=== PATIENT | female | born 1940 | race Caucasian/White ===

== ENCOUNTER 2017-10-02 19:11 | Inpatient (IN) | payer MEDICARE, MEDICAID ==
[2017-10-02] MEDS ORDERED: ACETAMINOPHEN 650 MG SUPP.RECT PR ONE ×2 (19:42→23:00)
[2017-10-02] MEDS ORDERED: NORMAL SALINE 500 ML IV PRN (19:47)
[2017-10-02] MEDS ORDERED: CEFEPIME 1 GM/D5W RTU 1 GM/50 ML RTUPB IV ONE (19:48)
--- NOTE | 2017-10-02 19:51 | ER Document Report ---
ED General - General Chief Complaint: Fever Stated Complaint: FEVER Time Seen by Provider: 10/02/17 19:33 Mode of Arrival: Medic Information source: Relative, [facility] Records Notes: This is a 77-year-old female who is a resident of [facility], history of CVA entheses right upper extremity contracture), diabetes, sepsis in the past, brought into the emergency room with fever and shaking chills. Patient is accompanied by her son who states that the at baseline, the patient is not ambulatory and that she has good days and bad days as far as mentation and conversation. TRAVEL OUTSIDE OF THE [place] IN LAST 30 DAYS: No - HPI Onset: Yesterday Onset/Duration: Gradual Quality of pain: No pain Severity: None Pain Level: Denies Associated symptoms: Fever, Shortness of breath. denies: Chest pain Exacerbated by: Denies Relieved by: Denies Similar symptoms previously: Yes Recently seen / treated by doctor: No - Related Data Allergies/Adverse Reactions: codeine [Codeine] Allergy (Verified 10/19/15 10:19) Iodinated Contrast- Oral and IV Dye [IV Dye, Iodine Containing] Allergy ( Verified 10/19/15 10:19) Past Medical History - General Information source: Relative, [facility] Records - Social History Smoking Status: Never Smoker Cigarette use (# per day): No Chew tobacco use (# tins/day): No Frequency of alcohol use: None Drug Abuse: None Lives with: [facility] Family History: Reviewed & Not Pertinent Patient has suicidal ideation: No Patient has homicidal ideation: No - Past Medical History Cardiac Medical History: Reports: Hx Hypercholesterolemia, Hx Hypertension Pulmonary Medical History: Denies: Hx Tuberculosis Neurological Medical History: Reports: Hx Cerebrovascular Accident Endocrine Medical History: Reports: Hx Diabetes Mellitus Type 1, Hx Diabetes Mellitus Type 2 Psychiatric Medical History: Denies: Hx Depression Past Surgical History: Reports: Hx Hysterectomy, Hx Tonsillectomy. Denies: Hx Pacemaker - Immunizations Hx Diphtheria, Pertussis, Tetanus Vaccination: - unk Review of Systems - Review of Systems Constitutional: Chills, Fever EENT: No symptoms reported Cardiovascular: No symptoms reported Respiratory: See HPI Gastrointestinal: No symptoms reported Genitourinary: No symptoms reported Female Genitourinary: No symptoms reported Musculoskeletal: No symptoms reported Skin: No symptoms reported Hematologic/Lymphatic: No symptoms reported Neurological/Psychological: No symptoms reported Physical Exam - Vital signs Vitals: Temp Pulse BP Pulse Ox 99.3 F 80 106/61 82 L 10/02/17 19:35 10/02/17 19:35 10/02/17 19:35 10/02/17 19:35 Notes: Physical exam: GENERAL: 77-year-old female, lying in stretcher, eyes open, alert does answer questions with yes or no. Temperature is 102.9 rectally HEAD: Atraumatic, normocephalic. EYES: Pupils equal round and reactive to light, extraocular movements intact, sclera anicteric, conjunctiva are normal. ENT: TMs normal, nares patent, oropharynx clear without exudates. Dry mucous membranes. NECK: Normal range of motion, supple without obvious mass or JVD. LUNGS: Breath sounds clear to auscultation bilaterally and equal. No wheezes rales or rhonchi. HEART: Regular rate and rhythm without murmurs, rubs or gallops. ABDOMEN: Soft, normoactive bowel sounds. No tenderness to palpation. No guarding, no rebound. No masses appreciated. EXTREMITIES: Normal range of motion, no pitting or edema. No clubbing or cyanosis. NEUROLOGICAL: Cranial nerves II through XII grossly intact. Normal speech, moving all extremities: Right upper extremity contracture. PSYCH: Normal mood, normal affect. SKIN: Warm, Dry, normal turgor, no rashes or lesions noted. Course - Vital Signs Vital signs: Temp Pulse Resp BP Pulse Ox 97.6 F 130 H 24 H 117/42 L 100 10/03/17 00:51 10/03/17 02:56 10/03/17 00:51 10/02/17 20:02 10/03/17 02:57 - Laboratory Result Diagrams: 10/02/17 20:00 10/02/17 20:00 Laboratory results interpreted by me: 10/02/17 10/02/17 20:00 20:00 WBC 16.0 H RBC 3.21 L Hgb 9.4 L Hct 28.4 L Seg Neutrophils % 82.9 H Lymphocytes % 5.3 L Absolute Neutrophils 13.2 H Absolute Monocytes 1.7 H Sodium 133.0 L Potassium 5.3 H Chloride 97 L BUN 63 H Creatinine 3.32 H Est GFR ( Amer) 16 L Est GFR (Non-Af Amer) 13 L Glucose 353 H Direct Bilirubin 0.6 H AST 47 H - Diagnostic Test Radiology reviewed: Image reviewed, Reports reviewed - And atelectasis Critical Care Note - Critical Care Note Total time excluding time spent on procedures (mins): 60 Discharge - Discharge Clinical Impression: sepsis, pneumonia Condition: Serious Disposition: ADMITTED INPATIENT Admitting Provider: Hospitalist Baltazar ye Unit Admitted: [facility]
[2017-10-02 20:25] LABS: ABSOLUTE BASOPHILS # (AUTO) 0.1 10^3/uL (0.0-0.2); ABSOLUTE LYMPHOCYTES (AUTO) 0.8 10^3/uL (0.5-4.7); ABSOLUTE MONOCYTES (AUTO) 1.7 10^3/uL (0.1-1.4); ABSOLUTE NEUT (AUTO) 13.2 10^3/uL (1.7-8.2); BASOPHILS % (AUTO) 0.8 % (0-2); EOSINOPHILS % (AUTO) 0.3 % (0-6); HEMATOCRIT 28.4 % (36.0-47.0); HEMOGLOBIN 9.4 g/dL (12.0-15.5); HGB HCT DIFFERENCE -0.2; LYMPHOCYTES % (AUTO) 5.3 % (13-45); MEAN CORPUSCULAR HEMOGLOBIN 29.2 pg (27.0-33.4); MEAN CORPUSCULAR VOLUME 88 fl (80-97); MONOCYTES % (AUTO) 10.7 % (3-13); RED BLOOD COUNT 3.21 10^6/uL (3.72-5.28); RED CELL DISTRIBUTION WIDTH 13.5 % (11.5-14.0); SEGMENTED NEUTROPHILS % (AUTO) 82.9 % (42-78)
[2017-10-02 20:40] LABS: ALANINE AMINOTRANSFERASE 46 U/L (9-52); ALBUMIN 3.5 g/dL (3.5-5.0); ALKALINE PHOSPHATASE 111 U/L (38-126); ANION GAP 12 (5-19); ASPARTATE AMINO TRANSFERASE 47 U/L (14-36); BILIRUBIN,DIRECT 0.6 mg/dL (0.0-0.4); BILIRUBIN,TOTAL 0.9 mg/dL (0.2-1.3); BLOOD UREA NITROGEN 63 mg/dL (7-20); CALCIUM 8.7 mg/dL (8.4-10.2); CARBON DIOXIDE 24 mmol/L (22-30); CHLORIDE 97 mmol/L (98-107); CREATININE RESULT 3.32 mg/dL (0.52-1.25); GLUCOSE 353 mg/dL (75-110); POTASSIUM 5.3 mmol/L (3.6-5.0); TOTAL PROTEIN 6.9 g/dL (6.3-8.2)
--- NOTE | 2017-10-02 21:10 | RADIOLOGY REPORT (SQ) ---
EXAM DESCRIPTION: CHEST SINGLE VIEW COMPLETED DATE/TIME: 10/02/2017 8:53 pm REASON FOR STUDY: fever COMPARISON: 10/24/2015, 10/23/2015, 10/18/2015, 09/27/2015 EXAM PARAMETERS: NUMBER OF VIEWS: One view. TECHNIQUE: Single frontal radiographic view of the chest acquired. RADIATION DOSE: NA LIMITATIONS: None. FINDINGS: LUNGS AND PLEURA: Minimal bandlike atelectasis along the right minor fissure. No fluffy alveolar consolidation worrisome for edema or pneumonia. No pleural effusion. No pneumothorax. MEDIASTINUM AND HILAR STRUCTURES: No masses. Contour normal. HEART AND VASCULAR STRUCTURES: Mild cardiomegaly BONES: No acute findings. HARDWARE: None in the chest. OTHER: No other significant finding. IMPRESSION: Minimal bandlike atelectasis along the right minor fissure TECHNICAL DOCUMENTATION: JOB ID: [id number]- All Rights Reserved
[2017-10-02] MEDS ORDERED: VANCOMYCIN HCL INJ 1000 MG VIAL IV ONE (21:26)
[2017-10-02] MEDS ORDERED: LEVALBUTEROL HCL NEB 1.25 MG/3 ML AMPUL NEB PRN (22:09)
[2017-10-02] MEDS ORDERED: NORMAL SALINE 1000 ML 1,000 ML IV ONE (22:14)
[2017-10-03] MEDS ORDERED: INFLUENZA ADLT QUAD (36MOS+) 2017-18 VAC 0.5 ML SYR IM PRN (01:25)
[2017-10-03] MEDS ORDERED: METOPROLOL TARTRATE PF/INJ 5 MG/5 ML SDV IV ONE ×3 (01:56→02:43)
[2017-10-03] MEDS: IPRATROPIUM/ALBUTEROL 0.5-2.5 MG/3 ML AMPUL NEB SCH ×2 (02:19→08:43)
[2017-10-03] MEDS ORDERED: ONDANSETRON HCL INJ/PF 4 MG/2 ML SDV ONE (02:37)
[2017-10-03] MEDS ORDERED: LORAZEPAM INJ 2 MG/1 ML VIAL ONE (02:41)
[2017-10-03] MEDS ORDERED: LORAZEPAM INJ 2 MG/1 ML VIAL IV ONE (02:43)
[2017-10-03] MEDS ORDERED: NORMAL SALINE 1000 ML 1,000 ML IV ONE (02:43)
[2017-10-03] MEDS ORDERED: HALOPERIDOL LACTATE INJ 5 MG/1 ML VIAL IV ONE (02:43)
[2017-10-03] MEDS ORDERED: ACETAMINOPHEN 325 MG TABLET PO ONE (02:44)
[2017-10-03] MEDS ORDERED: DILTIAZEM HCL INJ 25 MG/5 ML VIAL IV ONE (02:51)
[2017-10-03] MEDS ORDERED: DILTIAZEM HCL/D5W 125 MG/125 ML RTUINJ IV PRN (02:51)
[2017-10-03] MEDS ORDERED: DILTIAZEM HCL INJ 25 MG/5 ML VIAL ONE (02:52)
[2017-10-03] MEDS ORDERED: DILTIAZEM HCL/D5W 125 MG/125 ML RTUINJ IV ONE (02:54)
[2017-10-03] MEDS ORDERED: VANCOMYCIN HCL 0 MG in DEXTROSE 5%-WATER 250 ML IV NR (03:00)
[2017-10-03 03:20] LABS: CREATINE KINASE MB 0.33 ng/mL (<4.55)
[2017-10-03 03:26] LABS: TROPONIN I 0.07 ng/mL
[2017-10-03] MEDS ORDERED: CEFEPIME 2 GM/D5W RTU 2 GM/50 ML RTUPB IV ONE (05:27)
[2017-10-03 05:48] LABS: ABSOLUTE BASOPHILS # (AUTO) 0.1 10^3/uL (0.0-0.2); ABSOLUTE LYMPHOCYTES (AUTO) 0.8 10^3/uL (0.5-4.7); ABSOLUTE MONOCYTES (AUTO) 1.6 10^3/uL (0.1-1.4); ABSOLUTE NEUT (AUTO) 12.4 10^3/uL (1.7-8.2); BASOPHILS % (AUTO) 0.6 % (0-2); EOSINOPHILS % (AUTO) 0.2 % (0-6); HEMATOCRIT 25.8 % (36.0-47.0); HEMOGLOBIN 8.6 g/dL (12.0-15.5); LYMPHOCYTES % (AUTO) 5.1 % (13-45); MEAN CORPUSCULAR HEMOGLOBIN 28.9 pg (27.0-33.4); MEAN CORPUSCULAR HGB CONC 33.2 g/dL (32.0-36.0); MEAN CORPUSCULAR VOLUME 87 fl (80-97); MONOCYTES % (AUTO) 10.9 % (3-13); RED BLOOD COUNT 2.96 10^6/uL (3.72-5.28); RED CELL DISTRIBUTION WIDTH 13.5 % (11.5-14.0); SEGMENTED NEUTROPHILS % (AUTO) 83.2 % (42-78); WHITE BLOOD COUNT 14.9 10^3/uL (4.0-10.5)
[2017-10-03 05:56] LABS: ANION GAP 13 (5-19); BLOOD UREA NITROGEN 54 mg/dL (7-20); CALCIUM 8.3 mg/dL (8.4-10.2); CARBON DIOXIDE 20 mmol/L (22-30); CHLORIDE 102 mmol/L (98-107); CREATININE RESULT 2.99 mg/dL (0.52-1.25); GLUCOSE 273 mg/dL (75-110); POTASSIUM 5.4 mmol/L (3.6-5.0); SODIUM 135.3 mmol/L (137-145)
[2017-10-03] MEDS ORDERED: HEPARIN SOD (PORCINE) 5,000 UNIT/ML 1 ML SYRINGE SUBCUT SCH (06:00)
[2017-10-03] MEDS ORDERED: CEFEPIME 2 GM/D5W RTU 2 GM/50 ML RTUPB IV SCH ×2 (06:00→18:00)
--- NOTE | 2017-10-03 06:19 | PDOC H&P ---
History of Present Illness Admission Date/PCP: 10/02/17 21:50 [place] History of Present Illness: QUIN LEWIS is a 77 year old female with past medical history of diabetes mellitus, hypertension, CVA, chronic kidney disease, atrial fibrillation who presents to the emergency department with fever and chills. Patient is accompanied by her son who reports that patient has been ill since last Thursday. He reports several episodes of vomiting and that she has been less talkative than normal. He is unable really to give any other history. Patient is a long-time resident of the senior living. Past Medical History Cardiac Medical History: Reports: Atrial Fibrillation, Hyperlipidema, Hypertension Pulmonary Medical History: Denies: Tuberculosis Neurological Medical History: Reports: Ischemic CVA Endocrine Medical History: Reports: Diabetes Mellitus Type 2, Obesity Psychiatric Medical History: Denies: Depression Past Surgical History Past Surgical History: Reports: Hysterectomy, Orthopedic Surgery - Hip replacement, Tonsillectomy Denies: Pacemaker Social History Lives with: [facility] Smoking Status: Never Smoker Frequency of Alcohol Use: None Hx Recreational Drug Use: No Drugs: None Hx Prescription Drug Abuse: No - Advance Directive Resuscitation Status: Full Code Surrogate healthcare decision maker:: steven Ho Family History Family History: CAD Parental Family History Reviewed: Yes Children Family History Reviewed: Yes Sibling(s) Family History Reviewed.: Yes Medication/Allergy Home Medications: Enalapril Maleate [Vasotec 5 mg Tablet] 5 mg PO DAILY 05/01/12 Lovastatin [Mevacor] 10 mg PO QHS 05/01/12 Metoprolol Succinate [Toprol Xl 25 mg Tab.sr] 25 mg PO QPM 05/01/12 Lansoprazole [Prevacid 30 mg Odt Tablet] 30 mg PO Q6AM #0 tab. 10/02/15 Ondansetron [Zofran Odt 4 mg Tablet] 4 mg PO Q4HP PRN #0 tab.eliza 10/02/15 Polyethylene Glycol 3350 [Miralax Powder 17 gm/Packet] 17 gm PO QAM #0 powd.pack 10/02/15 Insulin Aspart [Novolog Flexpen] 0 unit SUBCUT .SLD SCALE PRN 10/19/15 Rivaroxaban [Xarelto 10 mg Tablet] 10 mg PO DAILY 10/19/15 Cefdinir [Omnicef 300 mg Capsule] 1 cap PO BID #10 capsule 10/23/15 Insulin Glargine,Hum.rec.anlog [Lantus Insulin 100 Unit/mL] 15 unit SUBCUT QHS insuln.pen 10/23/15 Tramadol HCl [Ultram 50 mg Tablet] 50 mg PO Q6HP PRN #30 tablet 10/23/15 Haloperidol [Haldol 2 mg Tablet] 2 mg PO QHS #30 tablet 10/25/15 Allergies/Adverse Reactions: codeine [Codeine] Allergy (Verified 10/19/15 10:19) Iodinated Contrast- Oral and IV Dye [IV Dye, Iodine Containing] Allergy ( Verified 10/19/15 10:19) Review of Systems ROS unobtainable: Due to mental status Physical Exam Vital Signs: Temp Pulse Resp BP Pulse Ox 97.6 F 130 H 24 H 115/67 100 10/03/17 00:51 10/03/17 02:56 10/03/17 00:51 10/03/17 03:14 10/03/17 04:00 Intake & Output 10/01/17 10/02/17 10/03/17 06:59 06:59 06:59 Weight 88.1 kg General appearance: PRESENT: mild distress, obese, well-developed, well- nourished Head exam: PRESENT: atraumatic, normocephalic Eye exam: PRESENT: conjunctiva pink, EOMI, PERRLA. ABSENT: scleral icterus Ear exam: PRESENT: normal external ear exam Mouth exam: PRESENT: dry mucosa, tongue midline Neck exam: PRESENT: lymphadenopathy, thyromegaly. ABSENT: JVD, tracheal deviation Respiratory exam: PRESENT: rhonchi - Right-sided, symmetrical, tachypnea, unlabored. ABSENT: accessory muscle use, rales, wheezes Cardiovascular exam: PRESENT: irregular rhythm, systolic murmur. ABSENT: diastolic murmur, gallop, rubs Pulses: PRESENT: normal dorsalis pedis pul Vascular exam: PRESENT: normal capillary refill GI/Abdominal exam: PRESENT: normal bowel sounds, soft. ABSENT: distended, firm , guarding, mass, Molina's sign, organolmegaly, rebound, rigid, tenderness Rectal exam: PRESENT: deferred Extremities exam: PRESENT: full ROM. ABSENT: calf tenderness, clubbing, pedal edema Neurological exam: PRESENT: alert, awake, oriented to person, motor sensory deficit - Right upper extremity weakness, chronic. ABSENT: CN II-XII grossly intact - Left-sided facial droop Psychiatric exam: PRESENT: anxious. ABSENT: homicidal ideation, suicidal ideation Skin exam: PRESENT: dry, intact, warm. ABSENT: cyanosis, rash Results Laboratory Results: 10/03/17 05:21 10/03/17 05:21 10/03/17 10/03/17 05:21 05:21 WBC 14.9 H RBC 2.96 L Hgb 8.6 L Hct 25.8 L MCV 87 MCH 28.9 MCHC 33.2 RDW 13.5 Plt Count 211 Seg Neutrophils % 83.2 H Lymphocytes % 5.1 L Monocytes % 10.9 Eosinophils % 0.2 Basophils % 0.6 Absolute Neutrophils 12.4 H Absolute Lymphocytes 0.8 Absolute Monocytes 1.6 H Absolute Eosinophils 0.0 Absolute Basophils 0.1 Sodium 135.3 L Potassium 5.4 H Chloride 102 Carbon Dioxide 20 L Anion Gap 13 BUN 54 H Creatinine 2.99 H Est GFR ( Amer) 18 L Est GFR (Non-Af Amer) 15 L Glucose 273 H Calcium 8.3 L 10/03/17 10/03/17 02:06 02:06 Creatine Kinase 52 CK-MB (CK-2) 0.33 Troponin I 0.070 Impressions: Chest X-Ray 10/02/17 19:47 IMPRESSION: Minimal bandlike atelectasis along the right minor fissure Status: Imported from PACS Assessment & Plan - Diagnosis (1) Acute renal failure Is this a current diagnosis for this admission?: Yes Plan: Likely secondary to sepsis and dehydration. Replete and recheck (2) Acute respiratory failure with hypoxemia Is this a current diagnosis for this admission?: Yes Plan: Oxygen as needed (3) Hyperkalemia Is this a current diagnosis for this admission?: Yes Plan: Likely secondary to intravascular volume depletion. And use of an PROMISE inhibitor at home. Hold PROMISE inhibitor and rehydrate patient recheck. (4) Atrial fibrillation with RVR Is this a current diagnosis for this admission?: Yes Plan: Give patient IV Lopressor and started on Cardizem. Patient is not on anticoagulation at her nursing facility. (5) Hyponatremia Is this a current diagnosis for this admission?: Yes Plan: Secondary to intravascular volume depletion. Replete and recheck (6) Anemia of chronic disease Is this a current diagnosis for this admission?: Yes (7) Chronic kidney disease, stage 3 Is this a current diagnosis for this admission?: Yes (8) Diabetes mellitus type II, controlled Qualifiers: Diabetes mellitus complication status: with kidney complications Diabetes mellitus complication detail: with chronic kidney disease Diabetes mellitus marine oil terminal superintendent insulin use: with marine oil terminal superintendent use Chronic kidney disease stage: stage 3 (moderate) Qualified Code(s): E11.22 - Type 2 diabetes mellitus with diabetic chronic kidney disease; N18.3 - Chronic kidney disease, stage 3 ( moderate); N18.3 - Chronic kidney disease, stage 3 (moderate); Z79.4 - halfway (current) use of insulin; Z79.4 - predatory animal exterminator (current) use of insulin; Z79.4 - halfway (current) use of insulin; Z79.4 - predatory animal exterminator (current) use of insulin Is this a current diagnosis for this admission?: Yes Plan: Place patient on sliding scale insulin and diabetic diet. Continue nightly Lantus (9) Hyperlipidemia Is this a current diagnosis for this admission?: Yes (10) Hypertension Is this a current diagnosis for this admission?: Yes Plan: Continue metoprolol (11) Metabolic encephalopathy Is this a current diagnosis for this admission?: Yes Plan: Haldol, patient does not respond well to benzodiazepines (12) DVT prophylaxis Is this a current diagnosis for this admission?: Yes Plan: Heparin and SCDs - Time Time Spent: 50 to 70 Minutes Medications reviewed and adjusted accordingly: Yes Anticipated discharge: SNF Within: Other - Upon improvement of symptomatology - Inpatient Certification Based on my medical assessment, after consideration of the patient's comorbidities, presenting symptoms, or acuity I expect that the services needed warrant INPATIENT care.: Yes I certify that my determination is in accordance with my understanding of Medicare's requirements for reasonable and necessary INPATIENT services [42 CFR 412.3e].: Yes Medical Necessity: Need For IV Fluids, Need For Continuous Telemetry Monitoring , Need for IV Antibiotics Post Hospital Care: D/C Armature Balancer Documentation
[2017-10-03] MEDS ORDERED: HALOPERIDOL LACTATE INJ 5 MG/1 ML VIAL ONE (06:43)
[2017-10-03] MEDS: ACETAMINOPHEN 325 MG TABLET PO PRN ×2 (06:51→18:06)
[2017-10-03] MEDS ORDERED: NORMAL SALINE 500 ML IV PRN (08:18)
[2017-10-03] MEDS ORDERED: LEVOFLOXACIN 500 MG/D5W RTU 500 MG/100 ML RTUPB IV SCH (10:00)
[2017-10-03 10:03] LABS: CREATINE KINASE MB < 0.22 ng/mL (<4.55)
[2017-10-03] MEDS ORDERED: METOPROLOL SUCCINATE 25 MG TAB.SR.24H PO ONE (10:15)
[2017-10-03] MEDS: FAMOTIDINE 20 MG TABLET PO SCH ×2 (10:43→22:23)
[2017-10-03] MEDS: GUAIFENESIN 600 MG TABLET.SA PO SCH ×2 (10:43→22:23)
[2017-10-03] MEDS ORDERED: OLANZAPINE INJ/PF 10 MG SDV IM ONE (12:30)
[2017-10-03] MEDS: NYSTATIN OINTMENT 15 GM TUBE TP SCH (13:00)
[2017-10-03 15:49] LABS: CREATINE KINASE MB 0.49 ng/mL (<4.55); TROPONIN I 0.06 ng/mL
[2017-10-03] MEDS ORDERED: METOPROLOL SUCCINATE 25 MG TAB.SR.24H PO SCH (18:00)
[2017-10-03] MEDS: CEFEPIME 2 GM/D5W RTU 2 GM/50 ML RTUPB IV SCH (18:01)
[2017-10-03] MEDS: METOPROLOL TARTRATE PF/INJ 5 MG/5 ML SDV IV PRN (20:22)
[2017-10-03] MEDS ORDERED: (PENDING PHARMACY ID) (Lovastatin [Mevacor] 10 MG) PO SCH (22:00)
[2017-10-03] MEDS: ATORVASTATIN CALCIUM 10 MG TABLET PO SCH (22:23)
[2017-10-03] MEDS: METOPROLOL SUCCINATE 25 MG TAB.SR.24H PO SCH (22:24)
[2017-10-03] MEDS: HALOPERIDOL 2 MG TABLET PO SCH (22:24)
[2017-10-03] MEDS: INSULIN GLARGINE,HUM.REC.ANLOG 300 UNIT/3 ML INSULN.PEN SUBCUT SCH (22:25)
[2017-10-03] MEDS: NORMAL SALINE 1000 ML 1,000 ML IV PRN (22:30)
--- NOTE | 2017-10-04 04:42 | PDOC PROGRESS REPORT ---
Subjective Progress Note for:: 10/03/17 Subjective:: Patient present with fever and leukocytosis. Patient now growing gram negative rods in urine, and blood. Patient on cefepime and vancomycin. Patient also in afib and now hypotensive on cardizem drip. Patient agitated and cannot get comfortable in the bed. This is her baseline per family at bedside. Reason For Visit: SEPSIS, PNEUMONIA Physical Exam Vital Signs: Temp Pulse Resp BP Pulse Ox 99.5 F 120 H 24 H 123/69 98 10/03/17 20:19 10/03/17 20:23 10/03/17 20:23 10/03/17 16:35 10/03/17 20:23 Intake & Output 10/02/17 10/03/17 10/04/17 06:59 06:59 06:59 Intake Total 515 200 Output Total 2300 Balance 515 -2100 Weight 89.6 kg General appearance: PRESENT: mild distress, obese Head exam: PRESENT: normocephalic Eye exam: PRESENT: EOMI. ABSENT: scleral icterus Ear exam: PRESENT: normal external ear exam Mouth exam: PRESENT: moist Neck exam: ABSENT: carotid bruit, JVD, lymphadenopathy, thyromegaly Respiratory exam: PRESENT: clear to auscultation sarah. ABSENT: rales, rhonchi, wheezes Cardiovascular exam: PRESENT: irregular rhythm. ABSENT: diastolic murmur, rubs , systolic murmur GI/Abdominal exam: PRESENT: normal bowel sounds, soft. ABSENT: distended, guarding, mass, organolmegaly, rebound, tenderness Rectal exam: PRESENT: deferred Gentrourinary exam: PRESENT: indwelling catheter Extremities exam: ABSENT: calf tenderness, clubbing, pedal edema Neurological exam: PRESENT: alert, altered, awake, oriented to person, CN II- XII grossly intact, other - right side weakness. ABSENT: motor sensory deficit Psychiatric exam: PRESENT: appropriate affect, normal mood. ABSENT: homicidal ideation, suicidal ideation Skin exam: PRESENT: dry, intact, warm, other - rash under her abdominal skin fold.. ABSENT: cyanosis, rash Results Laboratory Results: 10/03/17 05:21 10/03/17 05:21 10/03/17 10/03/17 05:21 05:21 WBC 14.9 H RBC 2.96 L Hgb 8.6 L Hct 25.8 L MCV 87 MCH 28.9 MCHC 33.2 RDW 13.5 Plt Count 211 Seg Neutrophils % 83.2 H Lymphocytes % 5.1 L Monocytes % 10.9 Eosinophils % 0.2 Basophils % 0.6 Absolute Neutrophils 12.4 H Absolute Lymphocytes 0.8 Absolute Monocytes 1.6 H Absolute Eosinophils 0.0 Absolute Basophils 0.1 Sodium 135.3 L Potassium 5.4 H Chloride 102 Carbon Dioxide 20 L Anion Gap 13 BUN 54 H Creatinine 2.99 H Est GFR ( Amer) 18 L Est GFR (Non-Af Amer) 15 L Glucose 273 H Calcium 8.3 L 10/03/17 10/03/17 10/03/17 02:06 02:06 08:30 Creatine Kinase 52 45 CK-MB (CK-2) 0.33 Troponin I 0.070 10/03/17 10/03/17 10/03/17 08:30 15:03 15:03 Creatine Kinase 56 CK-MB (CK-2) < 0.22 0.49 Troponin I 0.070 0.060 Impressions: Chest X-Ray 10/02/17 19:47 IMPRESSION: Minimal bandlike atelectasis along the right minor fissure Assessment & Plan - Diagnosis (1) Bacteremia Is this a current diagnosis for this admission?: Yes Plan: GNR bacteremia. Source most likely the urine. Patient on cefepime. Will discontinue vancomycin. Will continue to follow cultures for identification and susceptibilities. Repeat cultures ordered for the am. (2) Atrial fibrillation with RVR Is this a current diagnosis for this admission?: Yes Plan: Most likely due to underlying infection. Patient hypotensive on cardizem gtt. Will discontinue cardizem gtt. Will bolus patient and start toprolol 25mg bid along with PRN metoprolol IV push PRN for HR>115. Patient on xarelto for anticoagulation. This should resolve once infection is treated. (3) Acute renal failure Qualifiers: Acute renal failure type: unspecified Qualified Code(s): N17.9 - Acute kidney failure, unspecified Is this a current diagnosis for this admission?: Yes Plan: Acute on chronic renal failure 3-4. Most likely due to sepsis and intravascular depletion. Improving with IV fluids. Will continue to monitor. (4) Diabetes mellitus type II, controlled Qualifiers: Diabetes mellitus complication status: with kidney complications Diabetes mellitus complication detail: with chronic kidney disease Diabetes mellitus rat exterminator insulin use: with retirement use Chronic kidney disease stage: stage 3 (moderate) Qualified Code(s): E11.22 - Type 2 diabetes mellitus with diabetic chronic kidney disease; N18.3 - Chronic kidney disease, stage 3 ( moderate); N18.3 - Chronic kidney disease, stage 3 (moderate); Z79.4 - superintendent terminal (current) use of insulin; Z79.4 - superintendent terminal (current) use of insulin; Z79.4 - skilled nursing (current) use of insulin; Z79.4 - superintendent terminal (current) use of insulin Is this a current diagnosis for this admission?: Yes Plan: Continue current insulin regimen. (5) Metabolic encephalopathy Is this a current diagnosis for this admission?: Yes (6) Sepsis Is this a current diagnosis for this admission?: Yes Plan: Most likely due to GNR uti with bacteremia. Continue cefepime until cultures finalized. (7) UTI (urinary tract infection) Qualifiers: Urinary tract infection type: site unspecified Hematuria presence: with hematuria Qualified Code(s): N39.0 - Urinary tract infection, site not specified Plan: GNR growing in urine culture and blood. Patient currently on cefepime. (8) Hyperkalemia Is this a current diagnosis for this admission?: Yes Plan: Due to acute on chronic renal failure. Monitor. Will give dose of kayexelate. (9) Hyponatremia Is this a current diagnosis for this admission?: Yes Plan: Due to intravascular depletion. Continue NS and monitor. Currently trending up. (10) Dementia Qualifiers: Dementia behavioral disturbance: with behavioral disturbance Is this a current diagnosis for this admission?: Yes Plan: Patient now with worsened mentation due to acute infection; however patient with prior CVA most likely has vascular dementia. Continue home medications and avoid the use of ativan. - Time Time Spent with patient: 15-24 minutes Anticipated discharge: SNF - Inpatient Certification Medical Necessity: Significant Comorbidiites Make Outpatient Treatment Too Risky , Need Close Monitoring Due to Risk of Patient Decompensation, Need for IV Antibiotics
[2017-10-04 07:09] LABS: ABSOLUTE BASOPHILS # (AUTO) 0.1 10^3/uL (0.0-0.2); ABSOLUTE EOSINOPHILS # (AUTO) 0.2 10^3/uL (0.0-0.6); ABSOLUTE LYMPHOCYTES (AUTO) 1.2 10^3/uL (0.5-4.7); ABSOLUTE NEUT (AUTO) 9.8 10^3/uL (1.7-8.2); RED BLOOD COUNT 2.72 10^6/uL (3.72-5.28); WHITE BLOOD COUNT 12.7 10^3/uL (4.0-10.5)
[2017-10-04 07:19] LABS: ABSOLUTE MONOCYTES (AUTO) 1.4 10^3/uL (0.1-1.4); BASOPHILS % (AUTO) 0.9 % (0-2); EOSINOPHILS % (AUTO) 1.4 % (0-6); HEMATOCRIT 23.7 % (36.0-47.0); HGB HCT DIFFERENCE 0.3; LYMPHOCYTES % (AUTO) 9.7 % (13-45); MEAN CORPUSCULAR HEMOGLOBIN 29.4 pg (27.0-33.4); MEAN CORPUSCULAR HGB CONC 33.8 g/dL (32.0-36.0); MEAN CORPUSCULAR VOLUME 87 fl (80-97); RED CELL DISTRIBUTION WIDTH 13.6 % (11.5-14.0)
[2017-10-04 07:20] LABS: ANION GAP 13 (5-19); BLOOD UREA NITROGEN 49 mg/dL (7-20); CARBON DIOXIDE 17 mmol/L (22-30); CHLORIDE 109 mmol/L (98-107); CREATININE RESULT 2.45 mg/dL (0.52-1.25); GLUCOSE 135 mg/dL (75-110); POTASSIUM 4.6 mmol/L (3.6-5.0); SODIUM 138.7 mmol/L (137-145)
[2017-10-04] MEDS ORDERED: VANCOMYCIN HCL 1,500 MG in DEXTROSE 5%-WATER 250 ML IV SCH (10:00)
[2017-10-04] MEDS: RIVAROXABAN 10 MG TABLET PO SCH (11:10)
[2017-10-04] MEDS: FAMOTIDINE 20 MG TABLET PO SCH ×2 (11:10→23:31)
[2017-10-04] MEDS: GUAIFENESIN 600 MG TABLET.SA PO SCH ×2 (11:10→23:49)
[2017-10-04] MEDS: METOPROLOL SUCCINATE 25 MG TAB.SR.24H PO SCH ×2 (11:10→23:29)
[2017-10-04] MEDS: NYSTATIN OINTMENT 15 GM TUBE TP SCH (13:12)
[2017-10-04] MEDS ORDERED: DEXTROSE 40% GEL 15 GM TUBE PO PRN ×2 (13:13)
[2017-10-04] MEDS ORDERED: GLUCAGON,HUMAN RECOMB 1 MG INJ IM PRN (13:13)
[2017-10-04] MEDS ORDERED: DEXTROSE 50%-WATER 25 GM/50 ML DISP.SYRIN IV PRN ×2 (13:13)
--- NOTE | 2017-10-04 13:17 | PDOC PROGRESS REPORT ---
Subjective Progress Note for:: 10/04/17 Subjective:: Pt states that she is sleepy. Pt states she feels a little better. Nursing states that they have had a hard time getting pt to take medications. Pt states that she does not normally sleep this much. Reason For Visit: SEPSIS, PNEUMONIA Physical Exam Vital Signs: Temp Pulse Resp BP Pulse Ox 98.6 F 116 H 18 119/47 L 100 10/04/17 12:10 10/04/17 08:00 10/04/17 12:10 10/04/17 11:01 10/04/17 11:01 Intake & Output 10/03/17 10/04/17 10/05/17 06:59 06:59 06:59 Intake Total 515 790 0 Output Total 2450 600 Balance 515 -1660 -600 Weight 89.6 kg 88.4 kg General appearance: PRESENT: no acute distress, well-developed, well-nourished, other - sleepy but will answer questions. Head exam: PRESENT: atraumatic, normocephalic Eye exam: PRESENT: conjunctiva pink, EOMI, PERRLA. ABSENT: scleral icterus Ear exam: PRESENT: normal external ear exam Mouth exam: PRESENT: moist, tongue midline Neck exam: ABSENT: carotid bruit, JVD, lymphadenopathy, thyromegaly Respiratory exam: PRESENT: clear to auscultation sarah. ABSENT: rales, rhonchi, wheezes Cardiovascular exam: PRESENT: irregular rhythm, +S1, +S2 Pulses: PRESENT: normal dorsalis pedis pul Vascular exam: PRESENT: normal capillary refill GI/Abdominal exam: PRESENT: normal bowel sounds, soft. ABSENT: distended, guarding, mass, organolmegaly, rebound, tenderness Rectal exam: PRESENT: deferred Extremities exam: PRESENT: full ROM. ABSENT: calf tenderness, clubbing, pedal edema Neurological exam: PRESENT: other - sleeping but will answer questions Psychiatric exam: PRESENT: flat affect. ABSENT: homicidal ideation, suicidal ideation Skin exam: PRESENT: dry, intact, warm. ABSENT: cyanosis, rash Results Laboratory Results: 10/04/17 05:30 10/04/17 05:30 10/04/17 10/04/17 05:30 05:30 WBC 12.7 H RBC 2.72 L Hgb 8.0 L Hct 23.7 L MCV 87 MCH 29.4 MCHC 33.8 RDW 13.6 Plt Count 206 Seg Neutrophils % 77.0 Lymphocytes % 9.7 L Monocytes % 11.0 Eosinophils % 1.4 Basophils % 0.9 Absolute Neutrophils 9.8 H Absolute Lymphocytes 1.2 Absolute Monocytes 1.4 Absolute Eosinophils 0.2 Absolute Basophils 0.1 Sodium 138.7 Potassium 4.6 Chloride 109 H Carbon Dioxide 17 L Anion Gap 13 BUN 49 H Creatinine 2.45 H Est GFR ( Amer) 23 L Est GFR (Non-Af Amer) 19 L Glucose 135 H Calcium 8.0 L 10/03/17 10/03/17 10/03/17 02:06 02:06 08:30 Creatine Kinase 52 45 CK-MB (CK-2) 0.33 Troponin I 0.070 10/03/17 10/03/17 10/03/17 08:30 15:03 15:03 Creatine Kinase 56 CK-MB (CK-2) < 0.22 0.49 Troponin I 0.070 0.060 Impressions: Chest X-Ray 10/02/17 19:47 IMPRESSION: Minimal bandlike atelectasis along the right minor fissure Assessment & Plan - Diagnosis (1) Sepsis Is this a current diagnosis for this admission?: Yes Plan: Secondary to Acute Cystitis: Will continue current antibiotic. (2) Acute cystitis Is this a current diagnosis for this admission?: Yes Plan: Will continue current antibiotic. (3) Bacteremia Is this a current diagnosis for this admission?: Yes Plan: Most likely secondary to bacteria translocating to blood stream: Will continue current antibiotic. (4) Hypertension Is this a current diagnosis for this admission?: Yes Plan: Will continue to monitor. (5) Atrial fibrillation with RVR Is this a current diagnosis for this admission?: Yes Plan: Will continue current PO medications. Rate better controlled. (6) Diabetes mellitus type II, controlled Qualifiers: Diabetes mellitus complication status: with kidney complications Diabetes mellitus complication detail: with chronic kidney disease Diabetes mellitus long term care social worker insulin use: with long term care social worker use Chronic kidney disease stage: stage 3 (moderate) Qualified Code(s): E11.22 - Type 2 diabetes mellitus with diabetic chronic kidney disease; N18.3 - Chronic kidney disease, stage 3 ( moderate); N18.3 - Chronic kidney disease, stage 3 (moderate); Z79.4 - terminal make up operator (current) use of insulin; Z79.4 - terminal make up operator (current) use of insulin; Z79.4 - terminal make up operator (current) use of insulin; Z79.4 - terminal make up operator (current) use of insulin Is this a current diagnosis for this admission?: Yes Plan: Will add SSI regimen. (7) Metabolic encephalopathy Is this a current diagnosis for this admission?: Yes Plan: Improving. Will continue to monitor. (8) UTI (urinary tract infection) Qualifiers: Urinary tract infection type: acute cystitis Hematuria presence: with hematuria Qualified Code(s): N30.01 - Acute cystitis with hematuria Is this a current diagnosis for this admission?: Yes Plan: Will continue current treatment. (9) Acute renal failure Qualifiers: Acute renal failure type: unspecified Qualified Code(s): N17.9 - Acute kidney failure, unspecified Is this a current diagnosis for this admission?: Yes Plan: In setting CKD Stage 3: Will continue IVFs. Renal function improving. (10) DVT prophylaxis Is this a current diagnosis for this admission?: Yes Plan: Barber. - Time Time Spent with patient: 15-24 minutes
[2017-10-04] MEDS: CEFEPIME 2 GM/D5W RTU 2 GM/50 ML RTUPB IV SCH (18:02)
[2017-10-04] MEDS: METOPROLOL TARTRATE PF/INJ 5 MG/5 ML SDV IV PRN (19:14)
[2017-10-04] MEDS: ATORVASTATIN CALCIUM 10 MG TABLET PO SCH (23:32)
[2017-10-04] MEDS: INSULIN GLARGINE,HUM.REC.ANLOG 300 UNIT/3 ML INSULN.PEN SUBCUT SCH (23:34)
[2017-10-04] MEDS: TRAMADOL HCL 50 MG TABLET PO PRN (23:47)
[2017-10-05] MEDS: TRAMADOL HCL 50 MG TABLET PO PRN (05:38)
[2017-10-05] MEDS: METOPROLOL TARTRATE PF/INJ 5 MG/5 ML SDV IV PRN (05:43)
[2017-10-05 06:27] LABS: ABSOLUTE BASOPHILS # (AUTO) 0.1 10^3/uL (0.0-0.2); ABSOLUTE EOSINOPHILS # (AUTO) 0.4 10^3/uL (0.0-0.6); ABSOLUTE LYMPHOCYTES (AUTO) 1.2 10^3/uL (0.5-4.7); ABSOLUTE MONOCYTES (AUTO) 1.7 10^3/uL (0.1-1.4); ABSOLUTE NEUT (AUTO) 9.8 10^3/uL (1.7-8.2); BASOPHILS % (AUTO) 0.5 % (0-2); EOSINOPHILS % (AUTO) 3.1 % (0-6); HEMATOCRIT 25.9 % (36.0-47.0); HEMOGLOBIN 8.7 g/dL (12.0-15.5); HGB HCT DIFFERENCE 0.2; LYMPHOCYTES % (AUTO) 9.4 % (13-45); MEAN CORPUSCULAR HEMOGLOBIN 29.1 pg (27.0-33.4); MEAN CORPUSCULAR HGB CONC 33.4 g/dL (32.0-36.0); MEAN CORPUSCULAR VOLUME 87 fl (80-97); MONOCYTES % (AUTO) 12.6 % (3-13); RED BLOOD COUNT 2.98 10^6/uL (3.72-5.28); RED CELL DISTRIBUTION WIDTH 13.8 % (11.5-14.0); SEGMENTED NEUTROPHILS % (AUTO) 74.4 % (42-78); WHITE BLOOD COUNT 13.3 10^3/uL (4.0-10.5)
[2017-10-05 06:50] LABS: ALANINE AMINOTRANSFERASE 32 U/L (9-52); ALBUMIN 2.7 g/dL (3.5-5.0); ALKALINE PHOSPHATASE 95 U/L (38-126); ANION GAP 14 (5-19); ASPARTATE AMINO TRANSFERASE 17 U/L (14-36); BILIRUBIN,DIRECT 0.6 mg/dL (0.0-0.4); BILIRUBIN,TOTAL 0.8 mg/dL (0.2-1.3); BLOOD UREA NITROGEN 42 mg/dL (7-20); CALCIUM 8.8 mg/dL (8.4-10.2); CARBON DIOXIDE 17 mmol/L (22-30); CHLORIDE 111 mmol/L (98-107); CREATININE RESULT 2.06 mg/dL (0.52-1.25); GLUCOSE 87 mg/dL (75-110); MAGNESIUM 2.1 mg/dL (1.6-2.3); POTASSIUM 4.5 mmol/L (3.6-5.0); TOTAL PROTEIN 5.6 g/dL (6.3-8.2)
[2017-10-05] MEDS: HALOPERIDOL 2 MG TABLET PO SCH (07:17)
[2017-10-05] MEDS: FAMOTIDINE 20 MG TABLET PO SCH (09:33)
[2017-10-05] MEDS: GUAIFENESIN 600 MG TABLET.SA PO SCH (09:33)
[2017-10-05] MEDS: METOPROLOL SUCCINATE 25 MG TAB.SR.24H PO SCH (09:34)
[2017-10-05] MEDS: RIVAROXABAN 10 MG TABLET PO SCH (09:34)
--- NOTE | 2017-10-05 12:34 | PDOC PROGRESS REPORT ---
Subjective Progress Note for:: 10/05/17 Subjective:: Pt states that she is feeling better. Nursing states that pt was given Haldol 2 nights ago. Microbiology lab called to say that pt has ESBL E.coli. Reason For Visit: SEPSIS, PNEUMONIA Physical Exam Vital Signs: Temp Pulse Resp BP Pulse Ox 99.1 F 100 19 139/76 H 98 10/05/17 08:17 10/05/17 07:00 10/05/17 08:17 10/05/17 08:01 10/05/17 08:01 Intake & Output 10/04/17 10/05/17 10/06/17 06:59 06:59 06:59 Intake Total 790 2837 Output Total 2450 2175 Balance -1660 662 Weight 88.4 kg 95.2 kg General appearance: PRESENT: no acute distress, well-developed, well-nourished Head exam: PRESENT: atraumatic, normocephalic Eye exam: PRESENT: conjunctiva pink, EOMI. ABSENT: scleral icterus Ear exam: PRESENT: normal external ear exam Mouth exam: PRESENT: moist, tongue midline Neck exam: ABSENT: carotid bruit, JVD, lymphadenopathy, thyromegaly Respiratory exam: PRESENT: clear to auscultation sarah. ABSENT: rales, rhonchi, wheezes Cardiovascular exam: PRESENT: RRR. ABSENT: diastolic murmur, rubs, systolic murmur Pulses: PRESENT: normal dorsalis pedis pul Vascular exam: PRESENT: normal capillary refill GI/Abdominal exam: PRESENT: normal bowel sounds, soft. ABSENT: distended, guarding, mass, organolmegaly, rebound, tenderness Rectal exam: PRESENT: deferred Extremities exam: PRESENT: full ROM. ABSENT: calf tenderness, clubbing, pedal edema Musculoskeletal exam: PRESENT: full ROM Neurological exam: PRESENT: alert, awake, oriented to person, oriented to place. ABSENT: motor sensory deficit Psychiatric exam: PRESENT: appropriate affect, normal mood. ABSENT: homicidal ideation, suicidal ideation Skin exam: PRESENT: dry, intact, warm. ABSENT: cyanosis, rash Results Laboratory Results: 10/05/17 05:39 10/05/17 05:39 10/05/17 10/05/17 05:39 05:39 WBC 13.3 H RBC 2.98 L Hgb 8.7 L Hct 25.9 L MCV 87 MCH 29.1 MCHC 33.4 RDW 13.8 Plt Count 236 Seg Neutrophils % 74.4 Lymphocytes % 9.4 L Monocytes % 12.6 Eosinophils % 3.1 Basophils % 0.5 Absolute Neutrophils 9.8 H Absolute Lymphocytes 1.2 Absolute Monocytes 1.7 H Absolute Eosinophils 0.4 Absolute Basophils 0.1 Sodium 142.0 Potassium 4.5 Chloride 111 H Carbon Dioxide 17 L Anion Gap 14 BUN 42 H Creatinine 2.06 H Est GFR ( Amer) 28 L Est GFR (Non-Af Amer) 23 L Glucose 87 Calcium 8.8 Magnesium 2.1 Total Bilirubin 0.8 AST 17 ALT 32 Alkaline Phosphatase 95 Total Protein 5.6 L Albumin 2.7 L 10/03/17 10/03/17 10/03/17 02:06 02:06 08:30 Creatine Kinase 52 45 CK-MB (CK-2) 0.33 Troponin I 0.070 10/03/17 10/03/17 10/03/17 08:30 15:03 15:03 Creatine Kinase 56 CK-MB (CK-2) < 0.22 0.49 Troponin I 0.070 0.060 Impressions: Chest X-Ray 10/02/17 19:47 IMPRESSION: Minimal bandlike atelectasis along the right minor fissure Assessment & Plan - Diagnosis (1) Sepsis Is this a current diagnosis for this admission?: Yes Plan: Secondary to ESBL E.coli Acute Cystitis: Will discontinue cefepime. Will continue Meropenem. Pt will need to have repeat Blood culture in 48 hours. (2) Acute cystitis Is this a current diagnosis for this admission?: Yes Plan: ESBL E.coli: Will place Meropenem. Will discontinue Cefepime. (3) Bacteremia Is this a current diagnosis for this admission?: Yes Plan: Most likely secondary to ESBL E. coli bacteria translocating to blood stream: Will place on Meropenem. Will discontinue Cefepime. (4) Hypertension Is this a current diagnosis for this admission?: Yes Plan: Will continue to monitor. (5) Atrial fibrillation with RVR Is this a current diagnosis for this admission?: Yes Plan: Will increase pt Metoprolol Succinate to 37.5 mg PO BID. (6) Diabetes mellitus type II, controlled Qualifiers: Diabetes mellitus complication status: with kidney complications Diabetes mellitus complication detail: with chronic kidney disease Diabetes mellitus senior living insulin use: with senior living use Chronic kidney disease stage: stage 3 (moderate) Qualified Code(s): E11.22 - Type 2 diabetes mellitus with diabetic chronic kidney disease; N18.3 - Chronic kidney disease, stage 3 ( moderate); N18.3 - Chronic kidney disease, stage 3 (moderate); Z79.4 - assisted (current) use of insulin; Z79.4 - in school suspension coordinator (current) use of insulin; Z79.4 - in school suspension coordinator (current) use of insulin; Z79.4 - assisted (current) use of insulin Is this a current diagnosis for this admission?: Yes Plan: Will add SSI regimen. (7) Metabolic encephalopathy Is this a current diagnosis for this admission?: Yes Plan: Improving. Pt had been given Haldol the night prior. Will d/c haldol. (8) UTI (urinary tract infection) Qualifiers: Urinary tract infection type: acute cystitis Hematuria presence: with hematuria Qualified Code(s): N30.01 - Acute cystitis with hematuria Is this a current diagnosis for this admission?: Yes Plan: ESBL E. Coli: Meropenem. (9) Acute renal failure Qualifiers: Acute renal failure type: unspecified Qualified Code(s): N17.9 - Acute kidney failure, unspecified Is this a current diagnosis for this admission?: Yes Plan: In setting CKD Stage 3: Will continue IVFs. Renal function improving. Will continue to monitor. (10) DVT prophylaxis Is this a current diagnosis for this admission?: Yes Plan: [place]. - Time Time Spent with patient: 15-24 minutes - Pt placed in contact isolation.
[2017-10-05] MEDS ORDERED: ACETAMINOPHEN 325 MG TABLET PO PRN (12:59)
[2017-10-05] MEDS: NYSTATIN OINTMENT 15 GM TUBE TP SCH (13:03)
[2017-10-05] MEDS ORDERED: MEROPENEM 1 GM in NORMAL SALINE 50 ML IV ONE (13:30)
[2017-10-05] MEDS: NORMAL SALINE 1000 ML 1,000 ML IV PRN (17:40)
[2017-10-06] MEDS: METOPROLOL SUCCINATE 25 MG TAB.SR.24H PO SCH ×3 (00:06→23:17)
[2017-10-06] MEDS: ATORVASTATIN CALCIUM 10 MG TABLET PO SCH (00:06)
[2017-10-06] MEDS: GUAIFENESIN 600 MG TABLET.SA PO SCH ×2 (00:06→10:46)
[2017-10-06] MEDS: TRAMADOL HCL 50 MG TABLET PO PRN ×2 (00:07→23:17)
[2017-10-06] MEDS: INSULIN GLARGINE,HUM.REC.ANLOG 300 UNIT/3 ML INSULN.PEN SUBCUT SCH (00:08)
[2017-10-06] MEDS: MEROPENEM 1 GM in NORMAL SALINE 50 ML IV SCH ×3 (00:24→23:41)
[2017-10-06 07:05] LABS: HEMOGLOBIN 8.8 g/dL (12.0-15.5); HGB HCT DIFFERENCE -0.6; MEAN CORPUSCULAR HEMOGLOBIN 28.3 pg (27.0-33.4); MEAN CORPUSCULAR HGB CONC 32.5 g/dL (32.0-36.0); MEAN CORPUSCULAR VOLUME 87 fl (80-97); RED BLOOD COUNT 3.09 10^6/uL (3.72-5.28); RED CELL DISTRIBUTION WIDTH 13.9 % (11.5-14.0); WHITE BLOOD COUNT 13.9 10^3/uL (4.0-10.5)
[2017-10-06 07:12] LABS: ALANINE AMINOTRANSFERASE 35 U/L (9-52); ALBUMIN 2.6 g/dL (3.5-5.0); ALKALINE PHOSPHATASE 107 U/L (38-126); ANION GAP 12 (5-19); ASPARTATE AMINO TRANSFERASE 23 U/L (14-36); BILIRUBIN,DIRECT 0.5 mg/dL (0.0-0.4); BILIRUBIN,TOTAL 0.5 mg/dL (0.2-1.3); BLOOD UREA NITROGEN 35 mg/dL (7-20); CALCIUM 8.6 mg/dL (8.4-10.2); CARBON DIOXIDE 19 mmol/L (22-30); CHLORIDE 112 mmol/L (98-107); CREATININE RESULT 1.85 mg/dL (0.52-1.25); GLUCOSE 160 mg/dL (75-110); POTASSIUM 4.7 mmol/L (3.6-5.0); SODIUM 142.6 mmol/L (137-145); TOTAL PROTEIN 5.6 g/dL (6.3-8.2)
[2017-10-06 08:08] LABS: ABSOLUTE EOSINOPHILS# (MANUAL) 0.6 10^3/uL (0.0-0.6); BAND NEUTROPHILS % (MANUAL) 1 % (3-5); BASOPHILS % (MANUAL) 0 % (0-2); EOSINOPHILS % (MANUAL) 4 % (0-6); LYMPHOCYTES % (MANUAL) 10 % (13-45); OVALOCYTES SLIGHT; POIKILOCYTOSIS SLIGHT; TOTAL CELLS COUNTED 100; TOXIC GRANULATION 2+
[2017-10-06] MEDS: RIVAROXABAN 10 MG TABLET PO SCH (10:46)
[2017-10-06] MEDS: FAMOTIDINE 20 MG TABLET PO SCH (10:46)
[2017-10-06] MEDS: METOPROLOL TARTRATE PF/INJ 5 MG/5 ML SDV IV PRN (10:46)
[2017-10-06] MEDS: NYSTATIN OINTMENT 15 GM TUBE TP SCH (14:42)
--- NOTE | 2017-10-06 17:49 | PDOC PROGRESS REPORT ---
Subjective Progress Note for:: 10/06/17 Subjective:: The patient is resting in her bed. She is alert and oriented 1. She has a sitter at the bedside. A review of systems could not be obtained. Nursing staff report no overnight events. Reason For Visit: SEPSIS and urinary tract infection Physical Exam Vital Signs: Temp Pulse Resp BP Pulse Ox 97.7 F 115 H 21 H 136/68 H 100 10/06/17 15:19 10/06/17 15:19 10/06/17 15:19 10/06/17 15:19 10/06/17 15:19 Intake & Output 10/05/17 10/06/17 10/07/17 06:59 06:59 06:59 Intake Total 2837 2913 118 Output Total 2175 1950 700 Balance 662 963 -582 Weight 95.2 kg 94.5 kg General appearance: PRESENT: no acute distress, well-developed, well-nourished Head exam: PRESENT: atraumatic, normocephalic Respiratory exam: PRESENT: clear to auscultation sarah. ABSENT: rales, rhonchi, wheezes Cardiovascular exam: PRESENT: RRR. ABSENT: diastolic murmur, rubs, systolic murmur GI/Abdominal exam: PRESENT: normal bowel sounds, soft. ABSENT: distended, guarding, mass, organolmegaly, rebound, tenderness Extremities exam: PRESENT: full ROM. ABSENT: calf tenderness, clubbing, pedal edema Neurological exam: PRESENT: alert, altered, awake, oriented to person. ABSENT: oriented to place, oriented to time, oriented to situation Psychiatric exam: PRESENT: appropriate affect, normal mood. ABSENT: homicidal ideation, suicidal ideation Skin exam: PRESENT: dry, intact, warm. ABSENT: cyanosis, rash Results Laboratory Results: 10/06/17 06:43 10/06/17 06:43 10/06/17 10/06/17 06:43 06:43 WBC 13.9 H RBC 3.09 L Hgb 8.8 L Hct 27.0 L MCV 87 MCH 28.3 MCHC 32.5 RDW 13.9 Plt Count 266 Seg Neutrophils % Not Reportable Lymphocytes % Not Reportable Monocytes % Not Reportable Eosinophils % Not Reportable Basophils % Not Reportable Absolute Neutrophils Not Reportable Absolute Lymphocytes Not Reportable Absolute Monocytes Not Reportable Absolute Eosinophils Not Reportable Absolute Basophils Not Reportable Sodium 142.6 Potassium 4.7 Chloride 112 H Carbon Dioxide 19 L Anion Gap 12 BUN 35 H Creatinine 1.85 H Est GFR ( Amer) 32 L Est GFR (Non-Af Amer) 26 L Glucose 160 H Calcium 8.6 Total Bilirubin 0.5 AST 23 ALT 35 Alkaline Phosphatase 107 Total Protein 5.6 L Albumin 2.6 L 10/03/17 10/03/17 10/03/17 02:06 02:06 08:30 Creatine Kinase 52 45 CK-MB (CK-2) 0.33 Troponin I 0.070 10/03/17 10/03/17 10/03/17 08:30 15:03 15:03 Creatine Kinase 56 CK-MB (CK-2) < 0.22 0.49 Troponin I 0.070 0.060 Impressions: Chest X-Ray 10/02/17 19:47 IMPRESSION: Minimal bandlike atelectasis along the right minor fissure Assessment & Plan - Diagnosis (1) Sepsis Is this a current diagnosis for this admission?: Yes Plan: Present on admission secondary to urinary tract infection. She will continue IV meropenem. Her sepsis was due to urinary tract infection and bacteremia. (2) Acute metabolic encephalopathy Plan: The patient still remains acutely encephalopathic with a sitter at the bedside. There is no mention in her H&P of underlying dementia although I suspect she likely has a degree. She does reside in a local longterm. She is alert and oriented 1 and agitated. I do believe she is acutely encephalopathic likely due to her underlying illness. She does have a urinary tract infection as well as bacteremia. (3) UTI (urinary tract infection) Qualifiers: Urinary tract infection type: acute cystitis Hematuria presence: with hematuria Qualified Code(s): N30.01 - Acute cystitis with hematuria Is this a current diagnosis for this admission?: Yes Plan: The patient has an ESBL E. coli urinary tract infection. She will continue IV meropenem. She is improving. (4) Bacteremia Is this a current diagnosis for this admission?: Yes Plan: The patient has an ESBL E. coli bacteremia as well. Continue IV meropenem. (5) Atrial fibrillation with RVR Is this a current diagnosis for this admission?: Yes Plan: Resolved at this point. This was likely secondary to sepsis and acute illness. (6) Diabetes mellitus type II, controlled Qualifiers: Diabetes mellitus complication status: with kidney complications Diabetes mellitus complication detail: with chronic kidney disease Diabetes mellitus intermediate insulin use: with emt intermediate use Chronic kidney disease stage: stage 3 (moderate) Qualified Code(s): E11.22 - Type 2 diabetes mellitus with diabetic chronic kidney disease; N18.3 - Chronic kidney disease, stage 3 ( moderate); N18.3 - Chronic kidney disease, stage 3 (moderate); Z79.4 - petroleum terminal plant operator (current) use of insulin; Z79.4 - petroleum terminal plant operator (current) use of insulin; Z79.4 - prison (current) use of insulin; Z79.4 - prison (current) use of insulin Is this a current diagnosis for this admission?: Yes Plan: Stable (7) Hypertension Is this a current diagnosis for this admission?: Yes Plan: Stable (8) Acute on chronic renal failure Plan: Secondary to sepsis and dehydration. Improving with IV fluids. (9) Anemia Plan: She has a normocytic anemia consistent with chronic disease. Her hemoglobin is quite stable. (10) Hyponatremia Plan: Secondary to dehydration. Resolved (11) Hyperkalemia Is this a current diagnosis for this admission?: Yes Plan: Secondary to acute renal failure. Resolved (12) Metabolic acidosis Plan: Secondary to sepsis, urinary tract infection and bacteremia. Slowly improving. (13) Full code status Plan: There are no family members present. Further discussions need to be had. - Time Time Spent with patient: 25-34 minutes - Inpatient Certification Based on my medical assessment, after consideration of the patient's comorbidities, presenting symptoms, or acuity I expect that the services needed warrant INPATIENT care.: Yes I certify that my determination is in accordance with my understanding of Medicare's requirements for reasonable and necessary INPATIENT services [42 CFR 412.3e].: Yes Medical Necessity: Need For IV Fluids, Need for IV Antibiotics - Inpatient hospitalization remains necessary. The patient is still acutely encephalopathic from a urinary tract infection and bacteremia. She is requiring parenteral fluids and antibiotics. Timing of disposition will be determined by her clinical course.
[2017-10-06] MEDS ORDERED: MORPHINE SULFATE 10 MG/ML INJ IV ONE (23:00)
[2017-10-06] MEDS ORDERED: MORPHINE SULFATE 10 MG/ML INJ ONE (23:22)
[2017-10-07] MEDS ORDERED: LORAZEPAM INJ 2 MG/1 ML VIAL ONE (01:15)
[2017-10-07] MEDS ORDERED: LORAZEPAM INJ 2 MG/1 ML VIAL IV ONE (01:30)
[2017-10-07] MEDS: INSULIN GLARGINE,HUM.REC.ANLOG 300 UNIT/3 ML INSULN.PEN SUBCUT SCH ×2 (01:37→22:33)
[2017-10-07] MEDS: GUAIFENESIN 600 MG TABLET.SA PO SCH ×3 (01:37→22:35)
[2017-10-07] MEDS: ATORVASTATIN CALCIUM 10 MG TABLET PO SCH ×2 (01:37→22:35)
[2017-10-07] MEDS: NORMAL SALINE 1000 ML 1,000 ML IV PRN (04:33)
[2017-10-07 06:36] LABS: HEMOGLOBIN 8.9 g/dL (12.0-15.5)
[2017-10-07 06:42] LABS: HEMATOCRIT 26.9 % (36.0-47.0); HGB HCT DIFFERENCE -0.2; MEAN CORPUSCULAR HEMOGLOBIN 28.8 pg (27.0-33.4); MEAN CORPUSCULAR VOLUME 87 fl (80-97); RED BLOOD COUNT 3.08 10^6/uL (3.72-5.28); RED CELL DISTRIBUTION WIDTH 13.7 % (11.5-14.0); WHITE BLOOD COUNT 13.9 10^3/uL (4.0-10.5)
[2017-10-07 06:51] LABS: ANION GAP 13 (5-19); BLOOD UREA NITROGEN 34 mg/dL (7-20); CALCIUM 8.2 mg/dL (8.4-10.2); CARBON DIOXIDE 19 mmol/L (22-30); CHLORIDE 114 mmol/L (98-107); CREATININE RESULT 1.69 mg/dL (0.52-1.25); GLUCOSE 128 mg/dL (75-110); PHOSPHORUS 3.5 mg/dL (2.5-4.5); POTASSIUM 4.9 mmol/L (3.6-5.0); SODIUM 145.8 mmol/L (137-145)
[2017-10-07 07:05] LABS: ABSOLUTE EOSINOPHILS# (MANUAL) 0.1 10^3/uL (0.0-0.6); BAND NEUTROPHILS % (MANUAL) 1 % (3-5); BASOPHILS % (MANUAL) 0 % (0-2); EOSINOPHILS % (MANUAL) 1 % (0-6); LYMPHOCYTES % (MANUAL) 14 % (13-45); TOTAL CELLS COUNTED 100
[2017-10-07 07:06] LABS: OVALOCYTES SLIGHT; POIKILOCYTOSIS SLIGHT; TOXIC GRANULATION 1+
[2017-10-07 07:07] LABS: SCHISTOCYTES SLIGHT
[2017-10-07] MEDS: FAMOTIDINE 20 MG TABLET PO SCH (11:04)
[2017-10-07] MEDS: RIVAROXABAN 10 MG TABLET PO SCH (11:04)
[2017-10-07] MEDS: MEROPENEM 1 GM in NORMAL SALINE 50 ML IV SCH ×2 (11:05→22:34)
[2017-10-07] MEDS: METOPROLOL SUCCINATE 25 MG TAB.SR.24H PO SCH ×2 (11:05→22:35)
--- NOTE | 2017-10-07 11:50 | PDOC PROGRESS REPORT ---
Subjective Progress Note for:: 10/07/17 Subjective:: No family members are at the bedside. The patient is sleeping in her bed. She will arouse briefly to a sternal rub and then go right back to sleep. She has a sitter at the bedside states that she was up for most of the night. The patient seems extremely drowsy. Reason For Visit: SEPSIS, PNEUMONIA Physical Exam Vital Signs: Temp Pulse Resp BP Pulse Ox 97.4 F 103 H 19 144/76 H 100 10/07/17 08:35 10/07/17 08:35 10/07/17 08:35 10/07/17 08:35 10/07/17 08:35 Intake & Output 10/06/17 10/07/17 10/08/17 06:59 06:59 06:59 Intake Total 2913 1536 Output Total 1950 1600 Balance 963 -64 Weight 94.5 kg 96.4 kg General appearance: PRESENT: other - The patient is sleeping but arousable to a sternal rub but then goes right back to sleep. Head exam: PRESENT: atraumatic, normocephalic Mouth exam: PRESENT: moist, tongue midline Respiratory exam: PRESENT: retraction, other - Breathing is somewhat labored. She will not cooperate for an exam. She is decreased in the lower bases bilaterally. Cardiovascular exam: PRESENT: RRR. ABSENT: diastolic murmur, rubs, systolic murmur GI/Abdominal exam: PRESENT: normal bowel sounds, soft. ABSENT: distended, guarding, mass, organolmegaly, rebound, tenderness Extremities exam: PRESENT: full ROM. ABSENT: calf tenderness, clubbing, pedal edema Neurological exam: PRESENT: altered. ABSENT: alert, awake, oriented to person, oriented to place, oriented to time, oriented to situation Psychiatric exam: PRESENT: other - Patient is sleeping and will wake up Skin exam: PRESENT: dry, intact, warm. ABSENT: cyanosis, rash Results Laboratory Results: 10/07/17 06:26 10/07/17 06:26 10/07/17 10/07/17 06:26 06:26 WBC 13.9 H RBC 3.08 L Hgb 8.9 L Hct 26.9 L MCV 87 MCH 28.8 MCHC 33.0 RDW 13.7 Plt Count 316 Seg Neutrophils % Not Reportable Lymphocytes % Not Reportable Monocytes % Not Reportable Eosinophils % Not Reportable Basophils % Not Reportable Absolute Neutrophils Not Reportable Absolute Lymphocytes Not Reportable Absolute Monocytes Not Reportable Absolute Eosinophils Not Reportable Absolute Basophils Not Reportable Sodium 145.8 H Potassium 4.9 Chloride 114 H Carbon Dioxide 19 L Anion Gap 13 BUN 34 H Creatinine 1.69 H Est GFR ( Amer) 35 L Est GFR (Non-Af Amer) 29 L Glucose 128 H Calcium 8.2 L Phosphorus 3.5 Magnesium 2.0 10/03/17 10/03/17 10/03/17 02:06 02:06 08:30 Creatine Kinase 52 45 CK-MB (CK-2) 0.33 Troponin I 0.070 10/03/17 10/03/17 10/03/17 08:30 15:03 15:03 Creatine Kinase 56 CK-MB (CK-2) < 0.22 0.49 Troponin I 0.070 0.060 Impressions: Chest X-Ray 10/02/17 19:47 IMPRESSION: Minimal bandlike atelectasis along the right minor fissure Assessment & Plan - Diagnosis (1) Acute respiratory failure with hypoxemia Is this a current diagnosis for this admission?: Yes Plan: The patient is now requiring 6 L of oxygen. At this point I am quite concerned because her breathing seems somewhat labored. Also she cannot wake up for more than a few seconds without falling back to sleep. I am going to get a stat chest x-ray. I also am going to get a stat BNP ordered onto this morning's blood work. I am going to have respiratory therapy obtain an ABG. I have stopped her IV fluids and will likely give her a dose of IV Lasix to see if this helps. We will follow-up with those results. Also will order scheduled breathing treatments. (2) Sepsis Is this a current diagnosis for this admission?: Yes Plan: Present on admission secondary to urinary tract infection. She will continue IV meropenem. Her sepsis was due to urinary tract infection and bacteremia. (3) Acute metabolic encephalopathy Plan: The patient still remains acutely encephalopathic with a sitter at the bedside. There is no mention in her H&P of underlying dementia although I suspect she likely has a degree. She [facility] in a local [facility]. Today her mentation has further decreased ed. I do believe she is acutely encephalopathic likely due to her underlying illness. I am concerned she may have hypercapnic respiratory failure in addition to her hypoxia. I am going to get a blood gas. She does have a urinary tract infection as well as bacteremia. (4) UTI (urinary tract infection) Qualifiers: Urinary tract infection type: acute cystitis Hematuria presence: with hematuria Qualified Code(s): N30.01 - Acute cystitis with hematuria Is this a current diagnosis for this admission?: Yes Plan: The patient has an ESBL E. coli urinary tract infection. She will continue IV meropenem. This is day #3 of treatment with IV meropenem. (5) Bacteremia Is this a current diagnosis for this admission?: Yes Plan: The patient has an ESBL E. coli bacteremia as well. Continue IV meropenem. Again this is day #3 of treatment. Repeat blood cultures were drawn and have remained negative to date. (6) Atrial fibrillation with RVR Is this a current diagnosis for this admission?: Yes Plan: Resolved at this point. This was likely secondary to sepsis and acute illness. (7) Diabetes mellitus type II, controlled Qualifiers: Diabetes mellitus complication status: with kidney complications Diabetes mellitus complication detail: with chronic kidney disease Diabetes mellitus superintendent terminal insulin use: with superintendent terminal use Chronic kidney disease stage: stage 3 (moderate) Qualified Code(s): E11.22 - Type 2 diabetes mellitus with diabetic chronic kidney disease; N18.3 - Chronic kidney disease, stage 3 ( moderate); N18.3 - Chronic kidney disease, stage 3 (moderate); Z79.4 - custodial (current) use of insulin; Z79.4 - meterman (current) use of insulin; Z79.4 - custodial (current) use of insulin; Z79.4 - meterman (current) use of insulin Is this a current diagnosis for this admission?: Yes Plan: Stable (8) Hypertension Is this a current diagnosis for this admission?: Yes Plan: Her blood pressures are doing quite well at this point. (9) Acute on chronic renal failure Plan: Secondary to sepsis and dehydration. Improving with IV fluids. Her creatinine was 3.32 at the time of admission. Today it is 1.69. (10) Anemia Plan: She has a normocytic anemia consistent with chronic disease. Her hemoglobin is quite stable. (11) Hyponatremia Plan: Secondary to dehydration. Resolved (12) Hyperkalemia Is this a current diagnosis for this admission?: Yes Plan: Secondary to acute renal failure. Resolved (13) Metabolic acidosis Plan: Secondary to sepsis, urinary tract infection and bacteremia. Her level is the same today. 19 and still on the low side but it is not worsened.. - Time Time Spent with patient: 25-34 minutes - Inpatient Certification Medical Necessity: Need for IV Antibiotics, Other - Inpatient hospitalization remains necessary. The patient has now become acutely hypoxic and really is unresponsive this morning. We need further close monitoring in the hospital and treatment with parenteral antibiotics. I suspect she will be in the hospital for several more days before she can be sent back to her care home facility.
--- NOTE | 2017-10-07 12:40 | RADIOLOGY REPORT (SQ) ---
EXAM DESCRIPTION: CHEST SINGLE VIEW COMPLETED DATE/TIME: 10/07/2017 12:29 pm REASON FOR STUDY: worsening hypoxia COMPARISON: None. EXAM PARAMETERS: NUMBER OF VIEWS: One view. TECHNIQUE: Single frontal radiographic view of the chest acquired. RADIATION DOSE: NA LIMITATIONS: None. FINDINGS: LUNGS AND PLEURA: Limited lordotic positioning. Slightly increased density in the right u pper lobe adjacent to the minor fissure. MEDIASTINUM AND HILAR STRUCTURES: No masses. Contour normal. HEART AND VASCULAR STRUCTURES: Mild cardiomegaly. Possible mild vascular congestion. BONES: No acute findings. HARDWARE: None in the chest. OTHER: No other significant finding. IMPRESSION: LIMITED STUDY. MILD CARDIOMEGALY WITH MILD VASCULAR CONGESTION. SLIGHT INCREASED DENSI TY IN THE RIGHT UPPER LOBE CONCERNING FOR POSSIBLE DEVELOPING INFILTRATE TECHNICAL DOCUMENTATION: JOB ID: [id number] [employer]- All Rights Reserved
[2017-10-07 13:44] LABS: ARTERIAL BLOOD BASE EXCESS -7.6 mmol/L; ARTERIAL BLOOD O2 SATURATION 98.8 % (94-98)
[2017-10-07] MEDS: NYSTATIN OINTMENT 15 GM TUBE TP SCH (15:45)
[2017-10-07] MEDS ORDERED: FUROSEMIDE INJ/PF 20 MG/2 ML SDV IV SCH (18:15)
--- NOTE | 2017-10-07 18:29 | XCELERA REPORT ---
[address] [address] Transthoracic Echocardiogram Report Name: QUIN LEWIS Age: 77 yrs Gender: Female : 1940 Patient Status: Inpatient Patient Location: [address] [place], [place] [address] Study Date: 10/07/2017 03:00 PM Height: 66 in Weight: 212 lb BSA: 2.1 m2 Procedure: A two-dimensional transthoracic echocardiogram with color flow and Doppler was performed. Study Quality: Fair. Reason For Study: CHF History: CHF. Ordering Physician: HOA LIGHT Performed By: Shaina Ortega Interpretation Summary The left ventricle is normal in size. There is normal left ventricular wall thickness. LV EF is 60% Left ventricular systolic function is normal. LV diastolic function could not be adequately assessed due to atrial fibrilation. The left ventricular wall motion is normal. There is no thrombus. There is no ventricular septal defect visualized. The right ventricle is normal in size and function. The right atrium is normal. The left atrial size is normal. There is mild mitral annular calcification. There is no evidence of mitral valve prolapse. There is no vegetation seen on the mitral valve. There is no mitral valve stenosis. There is a mild amount of mitral regurgitation There is Aortic Sclerosis without Stenosis. There is no aortic valve stenosis There is a mild amount of aortic regurgitation There is no tricuspid stenosis. There is a mild amount of tricuspid regurgitation There is mild pulmonary hypertension by echo RVSP is 48 mm of Hg , with RA mean of 5. There is a trace amount of pulmonic regurgitation There is no pulmonic valvular stenosis. The aortic root is normal size. There is no pericardial effusion. MMode/2D Measurements & Calculations RVDd: 2.7 cm LVIDd: 4.1 cm FS: 28.8 % Ao root diam: 2.5 cm IVSd: 1.0 cm LVIDs: 2.9 cm EDV(Teich): 75.5 ml LVPWd: 0.99 cm ESV(Teich): 33.4 ml Ao root area: 4.8 cm2 EF(Teich): 55.8 % Doppler Measurements & Calculations Ao V2 max: AI max dinorah: LV V1 max PG: PA V2 max: 127.0 cm/sec 389.6 cm/sec 2.6 mmHg 68.0 cm/sec Ao max P.5 mmHg AI max P.7 mmHg LV V1 max: PA max PG: AI dec slope: 80.2 cm/sec 1.9 mmHg 179.0 cm/sec2 AI P1/2t: 637.6 msec PI end-d dinorah: TR max dinorah: 184.6 cm/sec 280.7 cm/sec TR max P.4 mmHg Left Ventricle The left ventricle is normal in size. There is normal left ventricular wall thickness. LV EF is 60%. Left ventricular systolic function is normal. LV diastolic function could not be adequately assessed due to atrial fibrilation. The left ventricular wall motion is normal. There is no thrombus. There is no ventricular septal defect visualized. Right Ventricle The right ventricle is normal in size and function. Atria The right atrium is normal. The left atrial size is normal. The interatrial septum is intact with no evidence for an atrial septal defect. Mitral Valve There is mild mitral annular calcification. There is no evidence of mitral valve prolapse. There is no vegetation seen on the mitral valve. There is no mitral valve stenosis. There is a mild amount of mitral regurgitation. Aortic Valve There is Aortic Sclerosis without Stenosis. There is no aortic valvular vegetation. There is no aortic valve stenosis. There is a mild amount of aortic regurgitation. Tricuspid Valve There is no tricuspid stenosis. There is a mild amount of tricuspid regurgitation. There is mild pulmonary hypertension by echo. RVSP is 48 mm of Hg , with RA mean of 5. Pulmonic Valve There is no pulmonic valvular stenosis. There is a trace amount of pulmonic regurgitation. Great Vessels The aortic root is normal size. Effusions There is no pericardial effusion. : HOA LIGHT > Deana Bales
[2017-10-07] MEDS ORDERED: FUROSEMIDE INJ/PF 40 MG/4 ML SDV IV ONE (18:45)
[2017-10-07] MEDS: TRAMADOL HCL 50 MG TABLET PO PRN (22:40)
[2017-10-08] MEDS: FUROSEMIDE INJ/PF 40 MG/4 ML SDV IV SCH ×2 (06:04→17:44)
[2017-10-08 06:13] LABS: ANION GAP 13 (5-19); BLOOD UREA NITROGEN 31 mg/dL (7-20); CALCIUM 8.4 mg/dL (8.4-10.2); CARBON DIOXIDE 19 mmol/L (22-30); CHLORIDE 114 mmol/L (98-107); CREATININE RESULT 1.67 mg/dL (0.52-1.25); GLUCOSE 73 mg/dL (75-110); MAGNESIUM 1.8 mg/dL (1.6-2.3); PHOSPHORUS 3.1 mg/dL (2.5-4.5); POTASSIUM 4.2 mmol/L (3.6-5.0); SODIUM 145.8 mmol/L (137-145)
[2017-10-08 06:18] LABS: ABSOLUTE BASOPHILS # (AUTO) 0.1 10^3/uL (0.0-0.2); ABSOLUTE EOSINOPHILS # (AUTO) 0.5 10^3/uL (0.0-0.6); ABSOLUTE LYMPHOCYTES (AUTO) 2.1 10^3/uL (0.5-4.7); ABSOLUTE MONOCYTES (AUTO) 1.6 10^3/uL (0.1-1.4); ABSOLUTE NEUT (AUTO) 8.7 10^3/uL (1.7-8.2); BASOPHILS % (AUTO) 0.8 % (0-2); EOSINOPHILS % (AUTO) 4.1 % (0-6); LYMPHOCYTES % (AUTO) 16.2 % (13-45); MEAN CORPUSCULAR HEMOGLOBIN 28.9 pg (27.0-33.4); MEAN CORPUSCULAR HGB CONC 33.5 g/dL (32.0-36.0); MEAN CORPUSCULAR VOLUME 86 fl (80-97); MONOCYTES % (AUTO) 12.3 % (3-13); RED BLOOD COUNT 3.12 10^6/uL (3.72-5.28); RED CELL DISTRIBUTION WIDTH 13.8 % (11.5-14.0); SEGMENTED NEUTROPHILS % (AUTO) 66.6 % (42-78); WHITE BLOOD COUNT 13.1 10^3/uL (4.0-10.5)
[2017-10-08] MEDS: RIVAROXABAN 10 MG TABLET PO SCH (10:54)
[2017-10-08] MEDS: GUAIFENESIN 600 MG TABLET.SA PO SCH ×2 (10:55→22:21)
[2017-10-08] MEDS: METOPROLOL SUCCINATE 25 MG TAB.SR.24H PO SCH ×2 (10:55→22:21)
[2017-10-08] MEDS: FAMOTIDINE 20 MG TABLET PO SCH (10:55)
[2017-10-08] MEDS: MEROPENEM 1 GM in NORMAL SALINE 50 ML IV SCH ×2 (10:56→22:22)
[2017-10-08] MEDS: NYSTATIN OINTMENT 15 GM TUBE TP SCH (13:14)
--- NOTE | 2017-10-08 17:58 | PDOC PROGRESS REPORT ---
Subjective Progress Note for:: 10/08/17 Subjective:: The patient is more awake and alert today. She is not oriented. A review of systems cannot be obtained. There are no family members at the bedside. Reason For Visit: SEPSIS, PNEUMONIA Physical Exam Vital Signs: Temp Pulse Resp BP Pulse Ox 97.3 F 91 20 141/68 H 100 10/08/17 15:52 10/08/17 15:52 10/08/17 15:52 10/08/17 15:52 10/08/17 15:52 Intake & Output 10/07/17 10/08/17 10/09/17 06:59 06:59 06:59 Intake Total 1536 750 680 Output Total 1600 3400 1999 Balance -64 -1493 -1320 Weight 96.4 kg 94.3 kg General appearance: PRESENT: no acute distress, well-developed, well-nourished Head exam: PRESENT: atraumatic, normocephalic Mouth exam: PRESENT: moist, tongue midline Respiratory exam: PRESENT: clear to auscultation sarah. ABSENT: rales, rhonchi, wheezes Cardiovascular exam: PRESENT: irregular rhythm - 1. ABSENT: diastolic murmur, rubs, systolic murmur GI/Abdominal exam: PRESENT: normal bowel sounds, soft. ABSENT: distended, guarding, mass, organolmegaly, rebound, tenderness Rectal exam: PRESENT: deferred Extremities exam: PRESENT: full ROM. ABSENT: calf tenderness, clubbing, pedal edema Neurological exam: PRESENT: alert, awake, oriented to person. ABSENT: oriented to place, oriented to time, oriented to situation, motor sensory deficit Psychiatric exam: PRESENT: appropriate affect, normal mood. ABSENT: homicidal ideation, suicidal ideation Skin exam: PRESENT: dry, intact, warm. ABSENT: cyanosis, rash Results Laboratory Results: 10/08/17 05:16 10/08/17 05:16 10/08/17 10/08/17 05:16 05:16 WBC 13.1 H RBC 3.12 L Hgb 9.0 L Hct 27.0 L MCV 86 MCH 28.9 MCHC 33.5 RDW 13.8 Plt Count 359 Seg Neutrophils % 66.6 Lymphocytes % 16.2 Monocytes % 12.3 Eosinophils % 4.1 Basophils % 0.8 Absolute Neutrophils 8.7 H Absolute Lymphocytes 2.1 Absolute Monocytes 1.6 H Absolute Eosinophils 0.5 Absolute Basophils 0.1 Sodium 145.8 H Potassium 4.2 Chloride 114 H Carbon Dioxide 19 L Anion Gap 13 BUN 31 H Creatinine 1.67 H Est GFR ( Amer) 36 L Est GFR (Non-Af Amer) 30 L Glucose 73 L Calcium 8.4 Phosphorus 3.1 Magnesium 1.8 10/03/17 10/03/17 10/03/17 02:06 02:06 08:30 Creatine Kinase 52 45 CK-MB (CK-2) 0.33 Troponin I 0.070 NT-Pro-B Natriuret Pep 10/03/17 10/03/17 10/03/17 08:30 15:03 15:03 Creatine Kinase 56 CK-MB (CK-2) < 0.22 0.49 Troponin I 0.070 0.060 NT-Pro-B Natriuret Pep 10/07/17 10/08/17 06:26 05:16 Creatine Kinase CK-MB (CK-2) Troponin I NT-Pro-B Natriuret Pep 95487 H 24817 H Impressions: Chest X-Ray 10/07/17 11:39 IMPRESSION: LIMITED STUDY. MILD CARDIOMEGALY WITH MILD VASCULAR CONGESTION. SLIGHT INCREASED DENSITY IN THE RIGHT UPPER LOBE CONCERNING FOR POSSIBLE DEVELOPING INFILTRATE Assessment & Plan - Diagnosis (1) Acute respiratory failure with hypoxemia Is this a current diagnosis for this admission?: Yes Plan: The patient is now requiring 5 L of oxygen. Yesterday the patient had increased work of breathing noted on my exam as well as increasing oxygen requirements. Her respiratory failure is likely due to a diastolic congestive heart failure exacerbation. I do not believe she has a pneumonia. BNP was markedly elevated. She is somewhat improved today. Treatment will be outlined below. (2) Sepsis Is this a current diagnosis for this admission?: Yes Plan: Present on admission secondary to urinary tract infection. She will continue IV meropenem. Her sepsis was due to urinary tract infection and bacteremia. (3) Acute metabolic encephalopathy Plan: Her acute encephalopathy is likely due to her urinary tract infection and bacteremia. Also due to her hypoxia yesterday. She seems to be improved today but still is only alert and oriented 1 (4) UTI (urinary tract infection) Qualifiers: Urinary tract infection type: acute cystitis Hematuria presence: with hematuria Qualified Code(s): N30.01 - Acute cystitis with hematuria Is this a current diagnosis for this admission?: Yes Plan: The patient has an ESBL E. coli urinary tract infection. She will continue IV meropenem. This is day #4 of treatment with IV meropenem. (5) Bacteremia Is this a current diagnosis for this admission?: Yes Plan: The patient has an ESBL E. coli bacteremia as well. Continue IV meropenem. Again this is day #4 of treatment. Repeat blood cultures were drawn and have remained negative to date. (6) Atrial fibrillation with RVR Is this a current diagnosis for this admission?: Yes Plan: Resolved at this point. This was likely secondary to sepsis and acute illness. 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 Improving with IV fluids. Her fluids have been stopped at this point. Her creatinine was 3.32 at the time of admission. Today it is 1.67. She may be approaching her baseline. (11) Hyponatremia Plan: Secondary to dehydration. Resolved. She now has developed some mild hypernatremia. She will have a chemistry panel drawn in the morning. (12) Hyperkalemia Is this a current diagnosis for this admission?: Yes Plan: Secondary to acute renal failure. Resolved (13) Metabolic acidosis Plan: Secondary to sepsis, urinary tract infection and bacteremia. Her level is the same today. 19 and still on the low side but it is not worsened.. - Time Time Spent with patient: 25-34 minutes - Inpatient Certification Based on my medical assessment, after consideration of the patient's comorbidities, presenting symptoms, or acuity I expect that the services needed warrant INPATIENT care.: Yes I certify that my determination is in accordance with my understanding of Medicare's requirements for reasonable and necessary INPATIENT services [42 CFR 412.3e].: Yes Medical Necessity: Need for IV Antibiotics - Inpatient hospitalization remains necessary. The patient requiring parenteral antibiotics for bacteremia and a urinary tract infection. Timing of disposition will be determined by her clinical course.
[2017-10-08] MEDS: INSULIN GLARGINE,HUM.REC.ANLOG 300 UNIT/3 ML INSULN.PEN SUBCUT SCH (22:20)
[2017-10-08] MEDS: ATORVASTATIN CALCIUM 10 MG TABLET PO SCH (22:21)
[2017-10-09] MEDS: FUROSEMIDE INJ/PF 40 MG/4 ML SDV IV SCH ×2 (05:21→18:47)
[2017-10-09 05:47] LABS: HEMATOCRIT 29.5 % (36.0-47.0); HEMOGLOBIN 9.9 g/dL (12.0-15.5); HGB HCT DIFFERENCE 0.2; MEAN CORPUSCULAR HEMOGLOBIN 28.5 pg (27.0-33.4); MEAN CORPUSCULAR HGB CONC 33.4 g/dL (32.0-36.0); MEAN CORPUSCULAR VOLUME 85 fl (80-97); RED BLOOD COUNT 3.46 10^6/uL (3.72-5.28); RED CELL DISTRIBUTION WIDTH 13.4 % (11.5-14.0); WHITE BLOOD COUNT 15.1 10^3/uL (4.0-10.5)
[2017-10-09 05:58] LABS: ANION GAP 12 (5-19); BLOOD UREA NITROGEN 28 mg/dL (7-20); CALCIUM 8.8 mg/dL (8.4-10.2); CARBON DIOXIDE 28 mmol/L (22-30); CHLORIDE 106 mmol/L (98-107); GLUCOSE 115 mg/dL (75-110); MAGNESIUM 1.7 mg/dL (1.6-2.3); SODIUM 145.8 mmol/L (137-145)
[2017-10-09 06:09] LABS: POTASSIUM 3.4 mmol/L (3.6-5.0)
[2017-10-09 06:13] LABS: ABSOLUTE EOSINOPHILS# (MANUAL) 1.1 10^3/uL (0.0-0.6); BAND NEUTROPHILS % (MANUAL) 3 % (3-5); BASOPHILS % (MANUAL) 0 % (0-2); EOSINOPHILS % (MANUAL) 7 % (0-6); LYMPHOCYTES % (MANUAL) 17 % (13-45); TOTAL CELLS COUNTED 100
[2017-10-09 06:14] LABS: RBC MORPHOLOGY COMMENT NORMO-CYTIC/CHROMIC; TOXIC GRANULATION SLIGHT
[2017-10-09] MEDS: GUAIFENESIN 600 MG TABLET.SA PO SCH ×2 (10:25→22:19)
[2017-10-09] MEDS: RIVAROXABAN 10 MG TABLET PO SCH (10:25)
[2017-10-09] MEDS: METOPROLOL SUCCINATE 25 MG TAB.SR.24H PO SCH (10:27)
[2017-10-09] MEDS: FAMOTIDINE 20 MG TABLET PO SCH (10:28)
[2017-10-09] MEDS: MEROPENEM 1 GM in NORMAL SALINE 50 ML IV SCH ×2 (10:32→22:18)
[2017-10-09] MEDS ORDERED: METOPROLOL SUCCINATE 25 MG TAB.SR.24H PO SCH (12:04)
[2017-10-09] MEDS ORDERED: HYDRALAZINE HCL INJ/PF 20 MG/1 ML SDV IV PRN (12:04)
[2017-10-09] MEDS: NYSTATIN OINTMENT 15 GM TUBE TP SCH (12:29)
--- NOTE | 2017-10-09 19:37 | PDOC PROGRESS REPORT ---
Subjective Progress Note for:: 10/09/17 Subjective:: The patient is a 77-year-old female with underlying dementia who resides at a [facility] facility. She was brought to the emergency room with acute encephalopathy and found to have evidence of a urinary tract infection and bacteremia. Urine culture and blood cultures were positive for ESBL E. coli. Currently she is receiving IV meropenem. Her hospitalization has been complicated by the development of acute respiratory failure. It was felt that the patient was having congestive heart failure exacerbation and she is currently being diuresed with IV Lasix and slowly improving n. Urs[facility] staff reports that she is getting confused at night. She has a sitter at the bedside Today when I saw the patient she is awake and alert and oriented 1. Review of systems could not be obtained. Reason For Visit: SEPSIS, PNEUMONIA Physical Exam Vital Signs: Temp Pulse Resp BP Pulse Ox 97.8 F 105 H 24 H 142/62 H 96 10/09/17 16:14 10/09/17 16:14 10/09/17 16:14 10/09/17 16:14 10/09/17 16:14 Intake & Output 10/08/17 10/09/17 10/10/17 06:59 06:59 06:59 Intake Total 750 830 340 Output Total 3400 5000 1800 Balance -2650 -4170 -1460 Weight 94.3 kg 91.6 kg General appearance: PRESENT: no acute distress, well-developed, well-nourished Head exam: PRESENT: atraumatic, normocephalic Mouth exam: PRESENT: moist, tongue midline Neck exam: ABSENT: carotid bruit, JVD, lymphadenopathy, thyromegaly Respiratory exam: PRESENT: clear to auscultation sarah. ABSENT: rales, rhonchi, wheezes Cardiovascular exam: PRESENT: irregular rhythm. ABSENT: diastolic murmur, rubs , systolic murmur GI/Abdominal exam: PRESENT: normal bowel sounds, soft. ABSENT: distended, guarding, mass, organolmegaly, rebound, tenderness Rectal exam: PRESENT: deferred Extremities exam: PRESENT: full ROM. ABSENT: calf tenderness, clubbing, pedal edema Neurological exam: PRESENT: alert, awake, oriented to person. ABSENT: oriented to place, oriented to time, oriented to situation Psychiatric exam: PRESENT: appropriate affect, normal mood. ABSENT: homicidal ideation, suicidal ideation Skin exam: PRESENT: dry, intact, warm. ABSENT: cyanosis, rash Results Laboratory Results: 10/09/17 05:09 10/09/17 05:09 10/09/17 10/09/17 05:09 05:09 WBC 15.1 H RBC 3.46 L Hgb 9.9 L Hct 29.5 L MCV 85 MCH 28.5 MCHC 33.4 RDW 13.4 Plt Count 416 Seg Neutrophils % Not Reportable Lymphocytes % Not Reportable Monocytes % Not Reportable Eosinophils % Not Reportable Basophils % Not Reportable Absolute Neutrophils Not Reportable Absolute Lymphocytes Not Reportable Absolute Monocytes Not Reportable Absolute Eosinophils Not Reportable Absolute Basophils Not Reportable Sodium 145.8 H Potassium 3.4 L Chloride 106 Carbon Dioxide 28 Anion Gap 12 BUN 28 H Creatinine 1.70 H Est GFR ( Amer) 35 L Est GFR (Non-Af Amer) 29 L Glucose 115 H Calcium 8.8 Magnesium 1.7 10/04/17 06:42 Blood Blood Culture - Final NO GROWTH IN 5 DAYS 10/04/17 05:30 Blood Blood Culture - Final NO GROWTH IN 5 DAYS 10/03/17 10/03/17 10/03/17 02:06 02:06 08:30 Creatine Kinase 52 45 CK-MB (CK-2) 0.33 Troponin I 0.070 NT-Pro-B Natriuret Pep 10/03/17 10/03/17 10/03/17 08:30 15:03 15:03 Creatine Kinase 56 CK-MB (CK-2) < 0.22 0.49 Troponin I 0.070 0.060 NT-Pro-B Natriuret Pep 10/07/17 10/08/17 10/09/17 06:26 05:16 05:09 Creatine Kinase CK-MB (CK-2) Troponin I NT-Pro-B Natriuret Pep 91967 H 18805 H 76108 H Impressions: Chest X-Ray 10/07/17 11:39 IMPRESSION: LIMITED STUDY. MILD CARDIOMEGALY WITH MILD VASCULAR CONGESTION. SLIGHT INCREASED DENSITY IN THE RIGHT UPPER LOBE CONCERNING FOR POSSIBLE DEVELOPING INFILTRATE Assessment & Plan - Diagnosis (1) Acute respiratory failure with hypoxemia Is this a current diagnosis for this admission?: Yes Plan: The patient is now requiring 5 L of oxygen. Yesterday the patient had increased work of breathing noted on my exam as well as increasing oxygen requirements. Her respiratory failure is likely due to a diastolic congestive heart failure exacerbation. I do not believe she has a pneumonia. BNP was markedly elevated. She is somewhat improved today. Treatment will be outlined below. (2) Acute diastolic (congestive) heart failure Plan: The patient did have a 2D echocardiogram. It was a poor quality study and the rental sales representative could not determine whether she had any diastolic dysfunction. She did have normal LV function. This is a presumed diastolic congestive heart failure event. She will continue 40 mg of IV Lasix every 12 hours. So far she is tolerating diuresis and was in a negative fluid balance of 2600 mL's yesterday. (3) Sepsis Is this a current diagnosis for this admission?: Yes Plan: Present on admission secondary to urinary tract infection. She will continue IV meropenem. Her sepsis was due to urinary tract infection and bacteremia. (4) Acute metabolic encephalopathy Plan: Her acute encephalopathy is likely due to her urinary tract infection and bacteremia. Also due to her hypoxia. She seems to be improved today but still is only alert and oriented 1 (5) UTI (urinary tract infection) Qualifiers: Urinary tract infection type: acute cystitis Hematuria presence: with hematuria Qualified Code(s): N30.01 - Acute cystitis with hematuria Is this a current diagnosis for this admission?: Yes Plan: The patient has an ESBL E. coli urinary tract infection. She will continue IV meropenem. This is day #5 of treatment with IV meropenem. (6) Bacteremia Is this a current diagnosis for this admission?: Yes Plan: The patient has an ESBL E. coli bacteremia as well. Continue IV meropenem. Again this is day #5 of treatment. Repeat blood cultures were drawn and have remained negative to date. (7) Atrial fibrillation with RVR Is this a current diagnosis for this admission?: Yes Plan: Her rapid rate has resolved. The patient remains in an irregular rhythm. This was likely secondary to sepsis and acute illness. (8) Diabetes mellitus type II, controlled Qualifiers: Diabetes mellitus complication status: with kidney complications Diabetes mellitus complication detail: with chronic kidney disease Diabetes mellitus mcc insulin use: with mcc use Chronic kidney disease stage: stage 3 (moderate) Qualified Code(s): E11.22 - Type 2 diabetes mellitus with diabetic chronic kidney disease; N18.3 - Chronic kidney disease, stage 3 ( moderate); N18.3 - Chronic kidney disease, stage 3 (moderate); Z79.4 - petroleum terminal plant operator (current) use of insulin; Z79.4 - longterm (current) use of insulin; Z79.4 - longterm (current) use of insulin; Z79.4 - longterm (current) use of insulin Is this a current diagnosis for this admission?: Yes Plan: Stable (9) Hypertension Is this a current diagnosis for this admission?: Yes (10) Acute on chronic renal failure Plan: Secondary to sepsis and dehydration. Improving with IV fluids. Her fluids have been stopped at this point. Her creatinine was 3.32 at the time of admission. I believe she is at her baseline. Creatinine so far is tolerating IV diuresis. (11) Anemia Plan: She has a normocytic anemia consistent with chronic disease. Her hemoglobin is quite stable. (12) Hyponatremia Plan: Secondary to dehydration. Resolved. She now has developed some mild hypernatremia. She will have a chemistry panel drawn in the morning. (13) Hyperkalemia Is this a current diagnosis for this admission?: Yes - Time Time Spent with patient: 25-34 minutes - Inpatient Certification Based on my medical assessment, after consideration of the patient's comorbidities, presenting symptoms, or acuity I expect that the services needed warrant INPATIENT care.: Yes I certify that my determination is in accordance with my understanding of Medicare's requirements for reasonable and necessary INPATIENT services [42 CFR 412.3e].: Yes Medical Necessity: Need for IV Antibiotics, Other - Inpatient hospitalization remains necessary. The patient has bacteremia requiring parenteral antibiotics. Timing of disposition will be determined by her clinical course. She still is requiring parenteral diuretics as well.
[2017-10-09] MEDS: INSULIN REG, HUMAN 100 UNIT/ML 3 ML VIAL (PYX) SUBCUT PRN (22:18)
[2017-10-09] MEDS: INSULIN GLARGINE,HUM.REC.ANLOG 300 UNIT/3 ML INSULN.PEN SUBCUT SCH (22:18)
[2017-10-09] MEDS: METOPROLOL SUCCINATE 50 MG TAB.SR.24H PO SCH (22:19)
[2017-10-09] MEDS: ATORVASTATIN CALCIUM 10 MG TABLET PO SCH (22:22)
[2017-10-10 05:02] LABS: HEMOGLOBIN 9.8 g/dL (12.0-15.5); HGB HCT DIFFERENCE 0.4; MEAN CORPUSCULAR HEMOGLOBIN 28.8 pg (27.0-33.4); MEAN CORPUSCULAR HGB CONC 33.6 g/dL (32.0-36.0); MEAN CORPUSCULAR VOLUME 86 fl (80-97); RED BLOOD COUNT 3.39 10^6/uL (3.72-5.28); RED CELL DISTRIBUTION WIDTH 13.8 % (11.5-14.0)
[2017-10-10 05:20] LABS: ABSOLUTE EOSINOPHILS# (MANUAL) 0.5 10^3/uL (0.0-0.6); ANION GAP 13 (5-19); BASOPHILS % (MANUAL) 0 % (0-2); BLOOD UREA NITROGEN 33 mg/dL (7-20); CALCIUM 8.4 mg/dL (8.4-10.2); CARBON DIOXIDE 27 mmol/L (22-30); CHLORIDE 104 mmol/L (98-107); CREATININE RESULT 1.79 mg/dL (0.52-1.25); EOSINOPHILS % (MANUAL) 3 % (0-6); GLUCOSE 138 mg/dL (75-110); LYMPHOCYTES % (MANUAL) 30 % (13-45); MAGNESIUM 1.6 mg/dL (1.6-2.3); PHOSPHORUS 3.5 mg/dL (2.5-4.5); POTASSIUM 3.6 mmol/L (3.6-5.0); SODIUM 143.7 mmol/L (137-145); TOTAL CELLS COUNTED 100
[2017-10-10 05:22] LABS: OVALOCYTES SLIGHT; POIKILOCYTOSIS 1+; TEAR DROP CELLS SLIGHT
[2017-10-10] MEDS: FUROSEMIDE INJ/PF 40 MG/4 ML SDV IV SCH (06:39)
[2017-10-10] MEDS: MEROPENEM 1 GM in NORMAL SALINE 50 ML IV SCH ×2 (10:54→21:42)
[2017-10-10] MEDS: FAMOTIDINE 20 MG TABLET PO SCH (10:54)
[2017-10-10] MEDS: RIVAROXABAN 10 MG TABLET PO SCH (10:54)
[2017-10-10] MEDS: GUAIFENESIN 600 MG TABLET.SA PO SCH ×2 (10:54→21:40)
[2017-10-10] MEDS: METOPROLOL SUCCINATE 50 MG TAB.SR.24H PO SCH ×2 (10:54→21:41)
--- NOTE | 2017-10-10 12:01 | PDOC PROGRESS REPORT ---
Subjective Progress Note for:: 10/10/17 Subjective:: The patient is a senior living resident. She was admitted for acute metabolic encephalopathy. This is felt to be secondary to a urinary tract infection. She has both a urinary tract infection and bacteremia secondary to an ESBL producing E. coli. During this hospitalization the patient developed acute respiratory failure with hypoxia. This is felt to be secondary to diastolic congestive heart failure. The patient is currently receiving intravenous Lasix. She did have an echocardiogram. This was of poor quality. However, the ejection fraction was noted to be preserved on echocardiogram testing. Reason For Visit: SEPSIS, PNEUMONIA Physical Exam Vital Signs: Temp Pulse Resp BP Pulse Ox 98.2 F 92 24 H 144/73 H 100 10/10/17 07:55 10/10/17 07:55 10/10/17 07:55 10/10/17 07:55 10/10/17 07:55 Intake & Output 10/09/17 10/10/17 10/11/17 06:59 06:59 06:59 Intake Total 830 698 Output Total 5000 3100 Balance -4170 -2402 Weight 91.6 kg 89.2 kg Additional comments: The patient is an obese white female. She was asleep in bed but woke up easily. She is oriented to person only. She states that she is having some shortness of breath. It is unclear if her review of systems is accurate. Her facial appearance is normal. Her lungs demonstrate rales in the bases extending one quarter the way up. Her cardiac exam is regular at this time. I do not appreciate any murmurs, gallops or rubs. The abdomen is obese but soft. Bowel sounds are noted in the lower quadrants. Her lower extremities demonstrate trace edema. The skin is otherwise warm, dry and intact without lesions or rashes. Results Laboratory Results: 10/10/17 04:39 10/10/17 04:39 10/10/17 10/10/17 04:39 04:39 WBC 15.0 H RBC 3.39 L Hgb 9.8 L Hct 29.0 L MCV 86 MCH 28.8 MCHC 33.6 RDW 13.8 Plt Count 409 Seg Neutrophils % Not Reportable Lymphocytes % Not Reportable Monocytes % Not Reportable Eosinophils % Not Reportable Basophils % Not Reportable Absolute Neutrophils Not Reportable Absolute Lymphocytes Not Reportable Absolute Monocytes Not Reportable Absolute Eosinophils Not Reportable Absolute Basophils Not Reportable Sodium 143.7 Potassium 3.6 Chloride 104 Carbon Dioxide 27 Anion Gap 13 BUN 33 H Creatinine 1.79 H Est GFR ( Amer) 33 L Est GFR (Non-Af Amer) 27 L Glucose 138 H Calcium 8.4 Phosphorus 3.5 Magnesium 1.6 10/03/17 10/03/17 10/03/17 02:06 02:06 08:30 Creatine Kinase 52 45 CK-MB (CK-2) 0.33 Troponin I 0.070 NT-Pro-B Natriuret Pep 10/03/17 10/03/17 10/03/17 08:30 15:03 15:03 Creatine Kinase 56 CK-MB (CK-2) < 0.22 0.49 Troponin I 0.070 0.060 NT-Pro-B Natriuret Pep 10/07/17 10/08/17 10/09/17 06:26 05:16 05:09 Creatine Kinase CK-MB (CK-2) Troponin I NT-Pro-B Natriuret Pep 57950 H 92684 H 05418 H 10/10/17 04:39 Creatine Kinase CK-MB (CK-2) Troponin I NT-Pro-B Natriuret Pep 8320 H Impressions: Chest X-Ray 10/07/17 11:39 IMPRESSION: LIMITED STUDY. MILD CARDIOMEGALY WITH MILD VASCULAR CONGESTION. SLIGHT INCREASED DENSITY IN THE RIGHT UPPER LOBE CONCERNING FOR POSSIBLE DEVELOPING INFILTRATE Assessment & Plan - Diagnosis (1) Acute diastolic (congestive) heart failure Is this a current diagnosis for this admission?: Yes (2) Acute metabolic encephalopathy Is this a current diagnosis for this admission?: Yes (3) Acute on chronic renal failure Is this a current diagnosis for this admission?: Yes (4) Acute respiratory failure with hypoxemia Is this a current diagnosis for this admission?: Yes (5) Anemia Is this a current diagnosis for this admission?: Yes (6) Atrial fibrillation with RVR Is this a current diagnosis for this admission?: Yes (7) Bacteremia Is this a current diagnosis for this admission?: Yes (8) Dementia Qualifiers: Dementia behavioral disturbance: with behavioral disturbance Is this a current diagnosis for this admission?: Yes (9) Anemia of chronic disease Is this a current diagnosis for this admission?: Yes (10) Chronic kidney disease, stage 3 Is this a current diagnosis for this admission?: Yes (11) Diabetes mellitus type II, controlled Qualifiers: Diabetes mellitus complication status: with kidney complications Diabetes mellitus complication detail: with chronic kidney disease Diabetes mellitus termite control technician insulin use: with termite control technician use Chronic kidney disease stage: stage 3 (moderate) Qualified Code(s): E11.22 - Type 2 diabetes mellitus with diabetic chronic kidney disease; N18.3 - Chronic kidney disease, stage 3 ( moderate); N18.3 - Chronic kidney disease, stage 3 (moderate); Z79.4 - [facility] (current) use of insulin; Z79.4 - [facility] (current) use of insulin; Z79.4 - [facility] (current) use of insulin; Z79.4 - termite treater helper (current) use of insulin Is this a current diagnosis for this admission?: Yes (12) Sepsis Is this a current diagnosis for this admission?: Yes (13) UTI (urinary tract infection) Qualifiers: Urinary tract infection type: acute cystitis Hematuria presence: with hematuria Qualified Code(s): N30.01 - Acute cystitis with hematuria Is this a current diagnosis for this admission?: Yes - Time Time Spent with patient: 25-34 minutes - Inpatient Certification Medical Necessity: Significant Comorbidiites Make Outpatient Treatment Too Risky , Need For Continuous Telemetry Monitoring, Need for IV Antibiotics, Risk of Complication if Not Cared For in Hospital - Plan Summary Plan Summary: The patient is currently admitted with acute metabolic encephalopathy secondary to sepsis. Patient has bacteremia and a urinary tract infection with an ESBL producing E. coli. She is currently receiving meropenem. Her hospitalization has been complicated by acute respiratory failure with hypoxemia. This is felt to be secondary to acute diastolic congestive heart failure with exacerbation. She is currently receiving intravenous Lasix. The patient has a history of acute on chronic renal failure and we need to watch her renal function and electrolytes closely. She has had issues with hyponatremia and hyperkalemia during this hospitalization. She also remains on therapy for diabetes which is currently under good control. Today is day 6 of meropenem.
[2017-10-10] MEDS: MAGNESIUM SULFATE/D5W 1 GM/100 ML RTUPB IV SCH ×2 (13:10→14:32)
[2017-10-10] MEDS: NYSTATIN OINTMENT 15 GM TUBE TP SCH (13:14)
[2017-10-10] MEDS ORDERED: POTASSIUM CHLORIDE 10 MEQ TABLET.SA PO ONE (13:30)
[2017-10-10] MEDS: ATORVASTATIN CALCIUM 10 MG TABLET PO SCH (21:41)
[2017-10-10] MEDS: INSULIN REG, HUMAN 100 UNIT/ML 3 ML VIAL (PYX) SUBCUT PRN (22:01)
[2017-10-10] MEDS: INSULIN GLARGINE,HUM.REC.ANLOG 300 UNIT/3 ML INSULN.PEN SUBCUT SCH (22:01)
[2017-10-11 06:00] LABS: ANION GAP 16 (5-19); BLOOD UREA NITROGEN 38 mg/dL (7-20); CALCIUM 8.6 mg/dL (8.4-10.2); CARBON DIOXIDE 27 mmol/L (22-30); CHLORIDE 100 mmol/L (98-107); CREATININE RESULT 1.85 mg/dL (0.52-1.25); GLUCOSE 133 mg/dL (75-110); MAGNESIUM 2.2 mg/dL (1.6-2.3); POTASSIUM 3.8 mmol/L (3.6-5.0); SODIUM 142.6 mmol/L (137-145)
[2017-10-11] MEDS ORDERED: DEXTROSE 50%-WATER 25 GM/50 ML DISP.SYRIN IV PRN ×2 (10:37)
[2017-10-11] MEDS ORDERED: GLUCAGON,HUMAN RECOMB 1 MG INJ IM PRN (10:37)
[2017-10-11] MEDS ORDERED: DEXTROSE 40% GEL 15 GM TUBE PO PRN ×2 (10:37)
[2017-10-11] MEDS ORDERED: ONDANSETRON HCL INJ/PF 4 MG/2 ML SDV ONE (10:43)
[2017-10-11] MEDS: MEROPENEM 1 GM in NORMAL SALINE 50 ML IV SCH ×2 (11:10→21:26)
[2017-10-11] MEDS: FAMOTIDINE 20 MG TABLET PO SCH (11:11)
[2017-10-11] MEDS: GUAIFENESIN 600 MG TABLET.SA PO SCH ×2 (11:11→21:20)
[2017-10-11] MEDS: METOPROLOL SUCCINATE 50 MG TAB.SR.24H PO SCH ×2 (11:11→21:21)
[2017-10-11] MEDS: RIVAROXABAN 10 MG TABLET PO SCH (11:12)
--- NOTE | 2017-10-11 11:25 | PDOC PROGRESS REPORT ---
Subjective Progress Note for:: 10/11/17 Subjective:: The patient is a [facility] resident. She was admitted for acute metabolic encephalopathy. This is felt to be secondary to a urinary tract infection. She has both a urinary tract infection and bacteremia secondary to an ESBL producing E. coli. Note that both blood cultures on 10/02/2017 were positive for E. coli. Follow-up blood cultures drawn on 10/04/2017 were negative for E. coli. During this hospitalization the patient developed acute respiratory failure with hypoxia. This is felt to be secondary to diastolic congestive heart failure. The patient was receiving intravenous Lasix. I discontinued this yesterday secondary to a rising creatinine. She did have an echocardiogram. This was of poor quality. However, the ejection fraction was noted to be preserved on echocardiogram testing. Reason For Visit: SEPSIS, PNEUMONIA Physical Exam Vital Signs: Temp Pulse Resp BP Pulse Ox 97.4 F 83 24 H 138/73 H 98 10/11/17 08:08 10/11/17 08:08 10/11/17 08:08 10/11/17 08:08 10/11/17 08:08 Intake & Output 10/10/17 10/11/17 10/12/17 06:59 06:59 06:59 Intake Total 698 1158 Output Total 3100 1900 Balance -2402 -742 Weight 89.2 kg 89.6 kg Additional comments: The patient was sitting up in bed. She was unaware that she was in the hospital. When I reminded her that she was in the hospital she correctly identified that she was at [facility]. In addition, she correctly identified that she was in [facility]. Her facial appearance is unremarkable. Her lungs are diminished throughout. Posteriorly, she has a few scattered crackles at the bases only. Her cardiac exam is regular. I do not appreciate any murmurs, gallops or rubs. The abdomen is soft and flat. Bowel sounds are present in the lower quadrants. There is no guarding or rebound present. The lower extremities demonstrate 1+ pitting edema. The skin is otherwise warm, dry and intact without lesions or rashes. Results Laboratory Results: 10/10/17 04:39 10/11/17 04:43 10/11/17 04:43 Sodium 142.6 Potassium 3.8 Chloride 100 Carbon Dioxide 27 Anion Gap 16 BUN 38 H Creatinine 1.85 H Est GFR ( Amer) 32 L Est GFR (Non-Af Amer) 26 L Glucose 133 H Calcium 8.6 Magnesium 2.2 10/03/17 10/03/17 10/03/17 02:06 02:06 08:30 Creatine Kinase 52 45 CK-MB (CK-2) 0.33 Troponin I 0.070 NT-Pro-B Natriuret Pep 10/03/17 10/03/17 10/03/17 08:30 15:03 15:03 Creatine Kinase 56 CK-MB (CK-2) < 0.22 0.49 Troponin I 0.070 0.060 NT-Pro-B Natriuret Pep 10/07/17 10/08/17 10/09/17 06:26 05:16 05:09 Creatine Kinase CK-MB (CK-2) Troponin I NT-Pro-B Natriuret Pep 11923 H 64123 H 77577 H 10/10/17 04:39 Creatine Kinase CK-MB (CK-2) Troponin I NT-Pro-B Natriuret Pep 8320 H Impressions: Chest X-Ray 10/07/17 11:39 IMPRESSION: LIMITED STUDY. MILD CARDIOMEGALY WITH MILD VASCULAR CONGESTION. SLIGHT INCREASED DENSITY IN THE RIGHT UPPER LOBE CONCERNING FOR POSSIBLE DEVELOPING INFILTRATE Assessment & Plan - Diagnosis (1) Acute diastolic (congestive) heart failure Is this a current diagnosis for this admission?: Yes Plan: I will hold Lasix again today secondary to an increase in the patient's creatinine overnight. (2) Acute metabolic encephalopathy Is this a current diagnosis for this admission?: Yes Plan: This appears to be improving. (3) Acute on chronic renal failure Is this a current diagnosis for this admission?: Yes Plan: Labs show that creatinine has gone up. I will repeat labs in the morning. Electrolytes are stable today. (4) Acute respiratory failure with hypoxemia Is this a current diagnosis for this admission?: Yes Plan: Improving. Likely secondary to diuresis. (5) Anemia Is this a current diagnosis for this admission?: Yes Plan: Stable. (6) Atrial fibrillation with RVR Is this a current diagnosis for this admission?: Yes Plan: Patient is now back in sinus rhythm. Tachycardia was likely be associated with sepsis and acute illness. Patient is on anticoagulation with Xarelto. (7) Bacteremia Is this a current diagnosis for this admission?: Yes Plan: Patient is on meropenem for ESBL producing E. coli. Therapy needs to be continued for total of 10 days. (8) Dementia Qualifiers: Dementia behavioral disturbance: with behavioral disturbance Is this a current diagnosis for this admission?: Yes (9) Anemia of chronic disease Is this a current diagnosis for this admission?: Yes (10) Chronic kidney disease, stage 3 Is this a current diagnosis for this admission?: Yes Plan: See above. (11) Diabetes mellitus type II, controlled Qualifiers: Diabetes mellitus complication status: with kidney complications Diabetes mellitus complication detail: with chronic kidney disease Diabetes mellitus extermination supervisor insulin use: with extermination supervisor use Chronic kidney disease stage: stage 3 (moderate) Qualified Code(s): E11.22 - Type 2 diabetes mellitus with diabetic chronic kidney disease; N18.3 - Chronic kidney disease, stage 3 ( moderate); N18.3 - Chronic kidney disease, stage 3 (moderate); Z79.4 - [facility] (current) use of insulin; Z79.4 - prison (current) use of insulin; Z79.4 - termite technician (current) use of insulin; Z79.4 - termite technician (current) use of insulin Is this a current diagnosis for this admission?: Yes Plan: Sliding scale insulin will be augmented to before meals and at bedtime. Continue basal insulin. (12) Sepsis Is this a current diagnosis for this admission?: Yes Plan: Clinically resolving. (13) UTI (urinary tract infection) Qualifiers: Urinary tract infection type: acute cystitis Hematuria presence: with hematuria Qualified Code(s): N30.01 - Acute cystitis with hematuria Is this a current diagnosis for this admission?: Yes Plan: Continue meropenem. - Time Time Spent with patient: 25-34 minutes - Inpatient Certification Medical Necessity: Need for IV Antibiotics
[2017-10-11] MEDS: INSULIN REG, HUMAN 100 UNIT/ML 3 ML VIAL (PYX) SUBCUT PRN ×2 (13:00→21:23)
[2017-10-11] MEDS: NYSTATIN OINTMENT 15 GM TUBE TP SCH (13:00)
[2017-10-11] MEDS: ATORVASTATIN CALCIUM 10 MG TABLET PO SCH (21:20)
[2017-10-11] MEDS: INSULIN GLARGINE,HUM.REC.ANLOG 300 UNIT/3 ML INSULN.PEN SUBCUT SCH (21:21)
[2017-10-12 07:19] LABS: ANION GAP 11 (5-19); BLOOD UREA NITROGEN 40 mg/dL (7-20); CALCIUM 8.5 mg/dL (8.4-10.2); CARBON DIOXIDE 28 mmol/L (22-30); CHLORIDE 104 mmol/L (98-107); CREATININE RESULT 1.83 mg/dL (0.52-1.25); GLUCOSE 104 mg/dL (75-110); MAGNESIUM 2.1 mg/dL (1.6-2.3); SODIUM 143.2 mmol/L (137-145)
[2017-10-12] MEDS: FAMOTIDINE 20 MG TABLET PO SCH (09:27)
[2017-10-12] MEDS: METOPROLOL SUCCINATE 50 MG TAB.SR.24H PO SCH ×2 (09:27→21:30)
[2017-10-12] MEDS: GUAIFENESIN 600 MG TABLET.SA PO SCH ×2 (09:28→21:30)
[2017-10-12] MEDS: RIVAROXABAN 10 MG TABLET PO SCH (09:28)
[2017-10-12] MEDS: MEROPENEM 1 GM in NORMAL SALINE 50 ML IV SCH (11:10)
[2017-10-12] MEDS: INSULIN REG, HUMAN 100 UNIT/ML 3 ML VIAL (PYX) SUBCUT PRN ×3 (12:53→21:29)
[2017-10-12] MEDS: NYSTATIN OINTMENT 15 GM TUBE TP SCH (12:53)
[2017-10-12] MEDS: TRAMADOL HCL 50 MG TABLET PO PRN (12:53)
--- NOTE | 2017-10-12 13:48 | PDOC PROGRESS REPORT ---
Subjective Progress Note for:: 10/12/17 Subjective:: The patient is a senior living resident. She was admitted for acute metabolic encephalopathy. This is felt to be secondary to a urinary tract infection. She has both a urinary tract infection and bacteremia secondary to an ESBL producing E. coli. Note that both blood cultures on 10/02/2017 were positive for E. coli. Follow-up blood cultures drawn on 10/04/2017 were negative for E. coli. During this hospitalization the patient developed acute respiratory failure with hypoxia. This is felt to be secondary to diastolic congestive heart failure. The patient was receiving intravenous Lasix. I discontinued this 10/10/17 secondary to a rising creatinine. She did have an echocardiogram. This was of poor quality. However, the ejection fraction was noted to be preserved on echocardiogram testing. The patient is receiving meropenem. She will complete antibiotics on 10/14/2017. Patient has improved significantly when compared to Thursday. She is much more awake and interactive. She knows that she is in the hospital. Today, she denied any complaints of shortness of breath. She has no abdominal complaints and she is tolerating solid food. She is not having any nausea, vomiting, diarrhea or constipation. Debility and weakness are issues. Reason For Visit: SEPSIS, PNEUMONIA Physical Exam Vital Signs: Temp Pulse Resp BP Pulse Ox 97.7 F 88 18 117/46 L 96 10/12/17 11:18 10/12/17 11:18 10/12/17 11:18 10/12/17 11:18 10/12/17 11:18 Intake & Output 10/11/17 10/12/17 10/13/17 06:59 06:59 06:59 Intake Total 1158 883 100 Output Total 1900 1400 300 Balance -742 -517 -200 Weight 89.6 kg 89 kg Additional comments: The patient is awake. Her cognition appears to be improving. She does not appear to be in any distress. Her lungs are clear to auscultation bilaterally. Her cardiac exam is regular. I do not appreciate any murmurs, gallops or rubs. The abdomen is soft and flat with normal active bowel sounds. The lower extremities are warm to touch without pitting edema. The skin is warm, dry and intact. No lesions or rashes are present. Results Laboratory Results: 10/10/17 04:39 10/12/17 06:19 10/12/17 06:19 Sodium 143.2 Potassium 4.0 Chloride 104 Carbon Dioxide 28 Anion Gap 11 BUN 40 H Creatinine 1.83 H Est GFR ( Amer) 32 L Est GFR (Non-Af Amer) 27 L Glucose 104 Calcium 8.5 Magnesium 2.1 10/03/17 10/03/17 10/03/17 02:06 02:06 08:30 Creatine Kinase 52 45 CK-MB (CK-2) 0.33 Troponin I 0.070 NT-Pro-B Natriuret Pep 10/03/17 10/03/17 10/03/17 08:30 15:03 15:03 Creatine Kinase 56 CK-MB (CK-2) < 0.22 0.49 Troponin I 0.070 0.060 NT-Pro-B Natriuret Pep 10/07/17 10/08/17 10/09/17 06:26 05:16 05:09 Creatine Kinase CK-MB (CK-2) Troponin I NT-Pro-B Natriuret Pep 10947 H 69219 H 41735 H 10/10/17 04:39 Creatine Kinase CK-MB (CK-2) Troponin I NT-Pro-B Natriuret Pep 8320 H Impressions: Chest X-Ray 10/07/17 11:39 IMPRESSION: LIMITED STUDY. MILD CARDIOMEGALY WITH MILD VASCULAR CONGESTION. SLIGHT INCREASED DENSITY IN THE RIGHT UPPER LOBE CONCERNING FOR POSSIBLE DEVELOPING INFILTRATE Assessment & Plan - Diagnosis (1) Acute diastolic (congestive) heart failure Is this a current diagnosis for this admission?: Yes Plan: On exam, the patient is euvolemic, therefore I will continue to hold Lasix for now. (2) Acute metabolic encephalopathy Is this a current diagnosis for this admission?: Yes Plan: This appears to be improving. (3) Acute on chronic renal failure Is this a current diagnosis for this admission?: Yes Plan: Creatinine is stable overnight. I am continuing to hold Lasix at this time because I feel that the patient is euvolemic on exam. I have reviewed the patient's creatinine values over the last several months. It appears that a creatinine in the high 1 range to 2 is about her baseline. (4) Acute respiratory failure with hypoxemia Is this a current diagnosis for this admission?: Yes Plan: Improving. Likely secondary to diuresis. (5) Anemia Is this a current diagnosis for this admission?: Yes Plan: Stable. (6) Atrial fibrillation with RVR Is this a current diagnosis for this admission?: Yes Plan: Patient is now back in sinus rhythm. Tachycardia was likely be associated with sepsis and acute illness. Patient is on anticoagulation with Xarelto. (7) Bacteremia Is this a current diagnosis for this admission?: Yes Plan: Patient is on meropenem for ESBL producing E. coli. Therapy needs to be continued for total of 10 days. (8) Dementia Qualifiers: Dementia behavioral disturbance: with behavioral disturbance Is this a current diagnosis for this admission?: Yes Plan: Patient appears to be near her baseline. (9) Anemia of chronic disease Is this a current diagnosis for this admission?: Yes Plan: Stable. (10) Chronic kidney disease, stage 3 Is this a current diagnosis for this admission?: Yes Plan: See above. (11) Diabetes mellitus type II, controlled Qualifiers: Diabetes mellitus complication status: with kidney complications Diabetes mellitus complication detail: with chronic kidney disease Diabetes mellitus intermediate insulin use: with intermediate use Chronic kidney disease stage: stage 3 (moderate) Qualified Code(s): E11.22 - Type 2 diabetes mellitus with diabetic chronic kidney disease; N18.3 - Chronic kidney disease, stage 3 ( moderate); N18.3 - Chronic kidney disease, stage 3 (moderate); Z79.4 - terminal operator (current) use of insulin; Z79.4 - nursing home (current) use of insulin; Z79.4 - terminal operator (current) use of insulin; Z79.4 - nursing home (current) use of insulin Is this a current diagnosis for this admission?: Yes Plan: Sliding scale insulin will be augmented to before meals and at bedtime. Continue basal insulin. (12) Sepsis Is this a current diagnosis for this admission?: Yes Plan: Clinically resolving. (13) UTI (urinary tract infection) Qualifiers: Urinary tract infection type: acute cystitis Hematuria presence: with hematuria Qualified Code(s): N30.01 - Acute cystitis with hematuria Is this a current diagnosis for this admission?: Yes Plan: Continue meropenem. - Time Time Spent with patient: 15-24 minutes - Inpatient Certification Medical Necessity: Need for IV Antibiotics - Plan Summary Plan Summary: The patient is improving. At this point in time she will complete meropenem therapy on October 14, 2017. Provided she remained stable she should be ready for discharge back to [facility] facility at that time. Please monitor for worsening volume status. Lasix may need to be re-introduced.
[2017-10-12] MEDS: INSULIN GLARGINE,HUM.REC.ANLOG 300 UNIT/3 ML INSULN.PEN SUBCUT SCH (21:30)
[2017-10-12] MEDS: ATORVASTATIN CALCIUM 10 MG TABLET PO SCH (21:30)
[2017-10-13] MEDS: FAMOTIDINE 20 MG TABLET PO SCH (10:46)
[2017-10-13] MEDS: METOPROLOL SUCCINATE 50 MG TAB.SR.24H PO SCH ×2 (10:46→21:55)
[2017-10-13] MEDS: RIVAROXABAN 10 MG TABLET PO SCH (10:47)
[2017-10-13] MEDS: GUAIFENESIN 600 MG TABLET.SA PO SCH ×2 (10:47→21:55)
[2017-10-13] MEDS: NYSTATIN OINTMENT 15 GM TUBE TP SCH (13:13)
[2017-10-13] MEDS: INSULIN REG, HUMAN 100 UNIT/ML 3 ML VIAL (PYX) SUBCUT PRN ×2 (13:13→22:02)
--- NOTE | 2017-10-13 17:59 | PDOC PROGRESS REPORT ---
Subjective Progress Note for:: 10/13/17 Subjective:: The patient is a 77-year-old female presented from a alf facility for acute metabolic encephalopathy felt to be secondary to a urinary tract infection and bacteremia due to ESBL producing E. coli. She is currently on meropenem and last day will be October 14. Reason For Visit: SEPSIS, PNEUMONIA Physical Exam Vital Signs: Temp Pulse Resp BP Pulse Ox 97.2 F 94 16 115/50 L 100 10/13/17 11:31 10/13/17 14:00 10/13/17 11:31 10/13/17 11:31 10/13/17 11:31 Intake & Output 10/12/17 10/13/17 10/14/17 06:59 06:59 06:59 Intake Total 883 655 222 Output Total 1400 950 100 Balance -517 -295 122 Weight 89 kg 88 kg Additional comments: Elderly female sitting up in bed not in acute distress Lungs: Clear to auscultation bilaterally normal respiratory effort Cardiac: S1-S2 regular no peripheral edema no cyanosis Abdomen: Soft, no focal tenderness, normal bowel sounds Results Laboratory Results: 10/10/17 04:39 10/12/17 06:19 10/03/17 10/03/17 10/03/17 02:06 02:06 08:30 Creatine Kinase 52 45 CK-MB (CK-2) 0.33 Troponin I 0.070 NT-Pro-B Natriuret Pep 10/03/17 10/03/17 10/03/17 08:30 15:03 15:03 Creatine Kinase 56 CK-MB (CK-2) < 0.22 0.49 Troponin I 0.070 0.060 NT-Pro-B Natriuret Pep 10/07/17 10/08/17 10/09/17 06:26 05:16 05:09 Creatine Kinase CK-MB (CK-2) Troponin I NT-Pro-B Natriuret Pep 16918 H 37155 H 45789 H 10/10/17 04:39 Creatine Kinase CK-MB (CK-2) Troponin I NT-Pro-B Natriuret Pep 8320 H Impressions: Chest X-Ray 10/07/17 11:39 IMPRESSION: LIMITED STUDY. MILD CARDIOMEGALY WITH MILD VASCULAR CONGESTION. SLIGHT INCREASED DENSITY IN THE RIGHT UPPER LOBE CONCERNING FOR POSSIBLE DEVELOPING INFILTRATE Assessment & Plan - Diagnosis (1) Acute cystitis Is this a current diagnosis for this admission?: Yes (2) Acute diastolic (congestive) heart failure Is this a current diagnosis for this admission?: Yes (3) Acute metabolic encephalopathy Is this a current diagnosis for this admission?: Yes (4) Atrial fibrillation with RVR Is this a current diagnosis for this admission?: Yes (5) Bacteremia Is this a current diagnosis for this admission?: Yes (6) Acute renal failure Qualifiers: Acute renal failure type: unspecified Qualified Code(s): N17.9 - Acute kidney failure, unspecified Is this a current diagnosis for this admission?: Yes (7) Metabolic encephalopathy Is this a current diagnosis for this admission?: Yes Plan: The patient is improving. Atrial fibrillation with RVR has resolved. Renal function is stable. She is currently euvolemic. Meropenem treatment will be completed on October 14 and she should be able to be discharged to the alf facility - Time Time Spent with patient: 25-34 minutes
[2017-10-13] MEDS: DOCUSATE SODIUM 100 MG CAPSULE PO SCH (18:01)
[2017-10-13] MEDS: MEROPENEM 1 GM in NORMAL SALINE 50 ML IV SCH (18:21)
[2017-10-13] MEDS: INSULIN GLARGINE,HUM.REC.ANLOG 300 UNIT/3 ML INSULN.PEN SUBCUT SCH (21:55)
[2017-10-13] MEDS: ATORVASTATIN CALCIUM 10 MG TABLET PO SCH (21:55)
[2017-10-14] MEDS: MEROPENEM 1 GM in NORMAL SALINE 50 ML IV SCH ×3 (00:47→22:20)
[2017-10-14 05:51] LABS: HEMATOCRIT 28.8 % (36.0-47.0); HEMOGLOBIN 9.5 g/dL (12.0-15.5); HGB HCT DIFFERENCE -0.3; MEAN CORPUSCULAR HEMOGLOBIN 28.6 pg (27.0-33.4); MEAN CORPUSCULAR HGB CONC 33.2 g/dL (32.0-36.0); MEAN CORPUSCULAR VOLUME 86 fl (80-97); RED BLOOD COUNT 3.34 10^6/uL (3.72-5.28); RED CELL DISTRIBUTION WIDTH 13.9 % (11.5-14.0); WHITE BLOOD COUNT 13.8 10^3/uL (4.0-10.5)
[2017-10-14 06:07] LABS: ANION GAP 11 (5-19); BLOOD UREA NITROGEN 42 mg/dL (7-20); CALCIUM 8.9 mg/dL (8.4-10.2); CARBON DIOXIDE 28 mmol/L (22-30); CHLORIDE 104 mmol/L (98-107); CREATININE RESULT 1.69 mg/dL (0.52-1.25); GLUCOSE 121 mg/dL (75-110); POTASSIUM 4.3 mmol/L (3.6-5.0); SODIUM 143.4 mmol/L (137-145)
[2017-10-14] MEDS: GUAIFENESIN 600 MG TABLET.SA PO SCH ×2 (09:39→22:20)
[2017-10-14] MEDS: FAMOTIDINE 20 MG TABLET PO SCH (09:39)
[2017-10-14] MEDS: RIVAROXABAN 10 MG TABLET PO SCH (09:39)
[2017-10-14] MEDS: METOPROLOL SUCCINATE 50 MG TAB.SR.24H PO SCH ×2 (09:39→22:21)
[2017-10-14] MEDS: DOCUSATE SODIUM 100 MG CAPSULE PO SCH ×2 (09:39→17:44)
[2017-10-14] MEDS: NYSTATIN OINTMENT 15 GM TUBE TP SCH (13:02)
[2017-10-14] MEDS: INSULIN REG, HUMAN 100 UNIT/ML 3 ML VIAL (PYX) SUBCUT PRN ×2 (13:02→17:43)
[2017-10-14] MEDS: LACTOBACILLUS ACIDOPHILUS 250 MG TAB PO SCH (17:43)
--- NOTE | 2017-10-14 18:35 | PDOC PROGRESS REPORT ---
Subjective Progress Note for:: 10/14/17 Subjective:: The patient has no complaints at present. Appetite is fair. She is constipated. Reason For Visit: SEPSIS, PNEUMONIA Physical Exam Vital Signs: Temp Pulse Resp BP Pulse Ox 98.4 F 94 18 135/61 H 98 10/14/17 15:33 10/14/17 15:33 10/14/17 15:33 10/14/17 15:33 10/14/17 15:33 Intake & Output 10/13/17 10/14/17 10/15/17 06:59 06:59 06:59 Intake Total 655 1124 442 Output Total 950 1275 425 Balance -295 -151 17 Weight 88 kg 87.1 kg Additional comments: General: Elderly female lying in bed not in acute distress Lungs: Clear to auscultation bilaterally normal respiratory effort Cardiac: S1-S2 regular no murmurs or no peripheral edema Abdomen: Soft with no focal tenderness normal bowel sounds Skin: Warm and dry Results Laboratory Results: 10/14/17 05:18 10/14/17 05:18 10/14/17 10/14/17 05:18 05:18 WBC 13.8 H RBC 3.34 L Hgb 9.5 L Hct 28.8 L MCV 86 MCH 28.6 MCHC 33.2 RDW 13.9 Plt Count 333 Sodium 143.4 Potassium 4.3 Chloride 104 Carbon Dioxide 28 Anion Gap 11 BUN 42 H Creatinine 1.69 H Est GFR ( Amer) 35 L Est GFR (Non-Af Amer) 29 L Glucose 121 H Calcium 8.9 10/03/17 10/03/17 10/03/17 02:06 02:06 08:30 Creatine Kinase 52 45 CK-MB (CK-2) 0.33 Troponin I 0.070 NT-Pro-B Natriuret Pep 10/03/17 10/03/17 10/03/17 08:30 15:03 15:03 Creatine Kinase 56 CK-MB (CK-2) < 0.22 0.49 Troponin I 0.070 0.060 NT-Pro-B Natriuret Pep 10/07/17 10/08/17 10/09/17 06:26 05:16 05:09 Creatine Kinase CK-MB (CK-2) Troponin I NT-Pro-B Natriuret Pep 65107 H 82304 H 90674 H 10/10/17 04:39 Creatine Kinase CK-MB (CK-2) Troponin I NT-Pro-B Natriuret Pep 8320 H Impressions: Chest X-Ray 10/07/17 11:39 IMPRESSION: LIMITED STUDY. MILD CARDIOMEGALY WITH MILD VASCULAR CONGESTION. SLIGHT INCREASED DENSITY IN THE RIGHT UPPER LOBE CONCERNING FOR POSSIBLE DEVELOPING INFILTRATE Assessment & Plan - Diagnosis (1) Acute cystitis Is this a current diagnosis for this admission?: Yes (2) Acute diastolic (congestive) heart failure Is this a current diagnosis for this admission?: Yes (3) Acute metabolic encephalopathy Is this a current diagnosis for this admission?: Yes (4) Atrial fibrillation with RVR Is this a current diagnosis for this admission?: Yes (5) Bacteremia Is this a current diagnosis for this admission?: Yes (6) Acute renal failure Qualifiers: Acute renal failure type: unspecified Qualified Code(s): N17.9 - Acute kidney failure, unspecified Is this a current diagnosis for this admission?: Yes (7) Metabolic encephalopathy Is this a current diagnosis for this admission?: Yes Plan: Anabolic enthesopathies improving. She has ESBL producing E. coli UTI. We will continue meropenem. Plan for possible discharge back to her long-term care facility tomorrow. - Time Time Spent with patient: 15-24 minutes
[2017-10-14] MEDS ORDERED: BISACODYL 5 MG TABEC PO ONE (18:36)
[2017-10-14] MEDS ORDERED: MEROPENEM 1 GM in NORMAL SALINE 50 ML IV SCH (22:00)
[2017-10-14] MEDS: ATORVASTATIN CALCIUM 10 MG TABLET PO SCH (22:20)
[2017-10-14] MEDS: INSULIN GLARGINE,HUM.REC.ANLOG 300 UNIT/3 ML INSULN.PEN SUBCUT SCH (22:21)
[2017-10-15] MEDS: GUAIFENESIN 600 MG TABLET.SA PO SCH (09:35)
[2017-10-15] MEDS: MEROPENEM 1 GM in NORMAL SALINE 50 ML IV SCH (09:35)
[2017-10-15] MEDS: LACTOBACILLUS ACIDOPHILUS 250 MG TAB PO SCH (09:35)
[2017-10-15] MEDS: RIVAROXABAN 10 MG TABLET PO SCH (09:35)
[2017-10-15] MEDS: METOPROLOL SUCCINATE 50 MG TAB.SR.24H PO SCH (09:35)
[2017-10-15] MEDS: FAMOTIDINE 20 MG TABLET PO SCH (09:35)
[2017-10-15] MEDS: DOCUSATE SODIUM 100 MG CAPSULE PO SCH (09:35)
--- NOTE | 2017-10-15 11:42 | PDOC DISCHARGE SUMMARY ---
General - Admit/Disc Date/PCP Admission Date/Primary Care Provider: 10/02/17 21:50 Discharge Date: 10/15/17 - Discharge Diagnosis (1) UTI (urinary tract infection) Is this a current diagnosis for this admission?: Yes (2) Atrial fibrillation with RVR Is this a current diagnosis for this admission?: Yes Summary: Contrary to acute illness. Resolved. (3) Bacteremia Is this a current diagnosis for this admission?: Yes Summary: ESBL producing E. coli. (4) Acute renal failure Is this a current diagnosis for this admission?: Yes (5) Metabolic encephalopathy Is this a current diagnosis for this admission?: Yes Summary: Secondary to UTI (7) Diastolic CHF, acute Is this a current diagnosis for this admission?: Yes Summary: Resolved with IV Lasix. (8) Acute respiratory failure with hypoxemia Is this a current diagnosis for this admission?: Yes (9) Sepsis Is this a current diagnosis for this admission?: Yes Summary: Due to urinary tract infection. Resolved with antibiotics and IV fluids. - Additional Information Resuscitation Status: Full Code Discharge Diet: Diabetic Discharge Activity: Activity As Tolerated Home Medications: Acetaminophen [Tylenol 325 mg Tablet] 650 mg PO QHS 10/03/17 Atorvastatin Calcium [Lipitor 10 mg Tablet] 10 mg PO QHS 10/03/17 Insulin Aspart [Novolog Insulin (Aspart) 100 unit/mL] 0 units SQ .PER SLIDING SCALE 10/03/17 Insulin Glargine,Hum.rec.anlog [Lantus Insulin 100 Unit/1 ml 10 ml] 20 units SQ QHS 10/03/17 Loratadine [Claritin 10 mg Tablet] 10 mg PO QHS 10/03/17 Melatonin/Pyridoxine HCl (B6) [Melatonin 3 mg Tablet] 1 tab PO QHS 10/03/17 Omeprazole Magnesium [Prilosec Otc] 20 mg PO DAILY 10/03/17 Polyethylene Glycol 3350 [Miralax Powder 17 gm/Packet] 1 dose PO DAILY 10/03/17 Atorvastatin Calcium [Lipitor 10 mg Tablet] 10 mg PO QHS tablet 10/15/17 Dextrose [Glutose 40% Gel 15 gm Tube] 15 gm PO PRN PRN tube 10/15/17 Dextrose [Glutose 40% Gel 15 gm Tube] 30 gm PO PRN PRN tube 10/15/17 Docusate Sodium [Colace 100 mg Capsule] 100 mg PO BID capsule 10/15/17 Haloperidol [Haldol 0.5 mg Tablet] 0.5 mg PO QHS #15 tablet 10/15/17 Metoprolol Succinate [Toprol Xl 50 mg Tab.sr] 50 mg PO Q12 tab.sr.24h 10/15/17 Normal Saline [Saline Flush 2.5 ml Monoject Prefil Syrin] 2.5 ml IV Q8 disp.syrin 10/15/17 Nystatin [Mycostatin Ointment 15 gm] 1 applic TP DAILY@1300 tube 10/15/17 Rivaroxaban [Xarelto 10 mg Tablet] 10 mg PO DAILY tablet 10/15/17 Tramadol HCl [Ultram 50 mg Tablet] 50 mg PO Q6HP PRN #10 tablet 10/15/17 History of Present Illness History of Present Illness: The patient is a 77 year old female who is a resident at a detention facility presented to the hospital on October 02 with fevers chills vomiting and confusion. She was found to have a urinary tract infection and bacteremia secondary to ESBL E. coli. Blood cultures 2 sets from October 02 were positive for E. coli. Follow-up blood cultures from October 04 were negative. The patient was treated with IV fluids and antibiotics and subsequently developed acute hypoxic respiratory failure secondary to diastolic CHF and was treated with intravenous Lasix. Echocardiogram was done which was of poor quality however left ventricular ejection fraction was noted to be preserved. The patient received 2 weeks of IV meropenem. Hospital Course Hospital Course: The patient was treated with meropenem. She was also given IV fluid resuscitation. Cardiogram showed left ventricular ejection fraction to be preserved. The patient did develop some hypoxia and respiratory distress which was felt to be due to diastolic CHF exacerbation and this was treated with IV Lasix. She is doing well and is stable for discharge back to her detention facility. Physical Exam Vital Signs: Temp Pulse Resp BP Pulse Ox 98.1 F 85 24 H 121/68 95 10/15/17 07:53 10/15/17 07:53 10/15/17 07:53 10/15/17 07:53 10/15/17 07:53 Intake & Output 10/14/17 10/15/17 10/16/17 06:59 06:59 06:59 Intake Total 1124 1570 Output Total 1275 1400 Balance -151 170 Weight 87.1 kg 91.9 kg Additional comments: Elderly female sitting up in bed not in acute distress Lungs: Clear to auscultation bilaterally normal respiratory effort no wheezing or crackles heard Cardiac: S1-S2 heard, no pedal edema no calf tenderness no cyanosis Abdomen: Soft, no focal tenderness normal bowel sounds Results Laboratory Results: 10/14/17 05:18 10/14/17 05:18 10/03/17 10/03/17 10/03/17 02:06 02:06 08:30 Creatine Kinase 52 45 CK-MB (CK-2) 0.33 Troponin I 0.070 NT-Pro-B Natriuret Pep 10/03/17 10/03/17 10/03/17 08:30 15:03 15:03 Creatine Kinase 56 CK-MB (CK-2) < 0.22 0.49 Troponin I 0.070 0.060 NT-Pro-B Natriuret Pep 10/07/17 10/08/17 10/09/17 06:26 05:16 05:09 Creatine Kinase CK-MB (CK-2) Troponin I NT-Pro-B Natriuret Pep 60038 H 33382 H 01356 H 10/10/17 04:39 Creatine Kinase CK-MB (CK-2) Troponin I NT-Pro-B Natriuret Pep 8320 H Impressions: Chest X-Ray 10/07/17 11:39 IMPRESSION: LIMITED STUDY. MILD CARDIOMEGALY WITH MILD VASCULAR CONGESTION. SLIGHT INCREASED DENSITY IN THE RIGHT UPPER LOBE CONCERNING FOR POSSIBLE DEVELOPING INFILTRATE Plan Discharge Plan: Discharge back to detention facility. Follow-up with primary care in 1 week. Will need a basic metabolic panel checked on October 19 with results to primary care physician. Time Spent: Greater than 30 Minutes
[2017-10-15 13:08] VITALS: BP 116/47
== END 2017-10-15 15:31 | DRG 871 ==
LOC: ER 19:11 → EH 21:50 → 3W 23:49
PROVIDERS: ADMIT Family Medicine; ATTEND Family Medicine
DX: A41.9 Sepsis, unspecified organism (principal); J18.9 Pneumonia, unspecified organism; G93.41 Metabolic encephalopathy; I50.31 Acute diastolic (congestive) heart failure; J96.01 Acute respiratory failure with hypoxia; N17.9 Acute kidney failure, unspecified; I13.0 Hypertensive heart and chronic kidney disease with heart failure and stage 1 through stage 4 chronic kidney disease, or unspecified chronic kidney disease; E87.1 Hypo-osmolality and hyponatremia; N30.01 Acute cystitis with hematuria; I48.2 Chronic atrial fibrillation; E11.22 Type 2 diabetes mellitus with diabetic chronic kidney disease; N18.3 Chronic kidney disease, stage 3 (moderate); D63.8 Anemia in other chronic diseases classified elsewhere; E87.5 Hyperkalemia; E86.0 Dehydration; F03.90 Unspecified dementia, unspecified severity, without behavioral disturbance, psychotic disturbance, mood disturbance, and anxiety; Z16.12 Extended spectrum beta lactamase (ESBL) resistance; B96.20 Unspecified Escherichia coli [E. coli] as the cause of diseases classified elsewhere; K59.00 Constipation, unspecified; M62.421 Contracture of muscle, right upper arm; I69.398 Other sequelae of cerebral infarction; Z79.01 Long term (current) use of anticoagulants; Z79.4 Long term (current) use of insulin; Z79.899 Other long term (current) drug therapy
CPT/HCPCS: 36415; 36600; 71010; 80048; 80053; 82272; 82550; 82553; 82803; 82962; 83605; 83735; 83880; 84100; 84484; 85025; 85027; 87040; 87077; 87086; 87088; 87186; 87804; 93005; 93010; 93306; 94640; 96365; 99285; G8978-GP; G8979-GP; J0692; J1630; J1644; J1815; J1940; J2060; J2185; J2270; J2405; J3370; J3475; J3490; J7030; J7040; J7620

== ENCOUNTER → 2019-09-13 | Outpatient (CLI) | payer MEDICARE, MEDICAID | LOC: PNR 12:58 | PROVIDERS: ATTEND Internal Medicine | DX: E11.9 Type 2 diabetes mellitus without complications (principal) | CPT/HCPCS: 83036 ==